=== PATIENT | female | born 1960 | race American Indian/Alaskan Native ===

== ENCOUNTER 2016-12-14 12:13 | Emergency (ER) | payer OTHER ==
[2016-12-14 13:20] LABS: Anion Gap 18 mmol/L; BUN/Creatinine Ratio 22.22; Blood Urea Nitrogen 20 mg/dL (7-17); Calcium 9.4 mg/dL (8.4-10.2); Carbon Dioxide 25 mmol/L (22-30); Chloride 105.2 mmol/L (98-107); Glucose 102 mg/dL (65-100); Potassium 3.8 mmol/L (3.6-5.0); Sodium 144 mmol/L (137-145)
[2016-12-14 13:22] LABS: Basophils % (Auto) 0.3 % (0.0-1.8); Eosinophils % (Auto) 1.9 % (0.0-4.3); Hematocrit 39.6 % (30.3-42.9); Hemoglobin 12.9 gm/dl (10.1-14.3); Mean Corpuscular HGB Conc 33 % (30-34); Mean Corpuscular Hemoglobin 30 pg (28-32); Mean Corpuscular Volume 91 fl (79-97); Platelet Count 222 K/mm3 (140-440); Red Blood Count 4.35 M/mm3 (3.65-5.03); Red Cell Distribution Width 16.1 % (13.2-15.2); White Blood Count 4.9 K/mm3 (4.5-11.0)
--- NOTE | 2016-12-14 13:39 | XRay Report ---
Left knee 2 views: History: Left knee swelling, pain. Findings: No bony or articular abnormality. No fracture dislocation or soft tissue calcification. Impression: Essentially negative left knee.
--- NOTE | 2016-12-14 20:41 | Emergency Department Report ---
HPI - General Chief Complaint: Extremity Problem,Nontraumatic Time Seen by Provider: 12/14/16 20:23 - HPI HPI: Room 25 The patient is a 56-year-old female presenting with a chief complaint of left shoulder pain and left knee pain. The patient states proximal 0.5 weeks ago she had the onset of left shoulder pain radiating down her left upper extremity. The patient states she also developed pain and swelling of the left knee. Patient states the swelling and pain was intermittent and had decreased however after it rained 3 days ago the patient states the pain and swelling increased. Patient denies shortness of breath, nausea/vomiting or diaphoresis associated with her shoulder pain. The patient states she believes the left shoulder is arthritis but because of her previous [place] she is uncertain and cannot be sure it is not her heart. The patient states her last stress test occurred October 2016 and was normal. The patient states her last cardiac catheterization occurred in 2011 when she had cardiac stents placed. The patient states she is currently on Plavix Location: Left Knee, left shoulder Duration: Intermittent 1.5 weeks Quality: Pain Severity: Moderate Modifying factors: [see above] Context: [see above] Mode of transportation: [not driving] ED Past Medical Hx - Past Medical History Hx Hypertension: Yes Hx Heart Attack/AMI: Yes (2012 -[facility]) Hx Arthritis: Yes (PIERRE) Additional medical history: Chronic low back pain. naval hernia, knee Pain, Arthritis - Surgical History Past Surgical History?: Yes Hx Coronary Stent: Yes (x2) Additional Surgical History: Back surgery x2-epidurals. partial hysterectomy - Family History Family history: no significant - Social History Smoking Status: Former Smoker (none 1 month) Substance Use Type: None (denies illicit drug use) - Medications Home Medications: Home Medications Medication Instructions Recorded Confirmed Last Taken Type Clopidogrel Bisulfate [Plavix] 75 mg PO DAILY 12/06/13 11/05/14 11/05/14 History Valsartan [Diovan] 160 mg PO DAILY 12/06/13 11/05/14 Unknown History Metoprolol [Lopressor TAB] 50 mg PO QDAY #30 tablet 06/15/14 11/05/14 11/05/14 Rx Valsartan/Hydrochlorothiazide 1 each PO QDAY #30 tablet 06/15/14 11/05/14 Rx [Valsartan-Hctz 160-25 mg] oxyCODONE /ACETAMINOPHEN [Percocet 1 tab PO Q6HR PRN #15 tablet 06/15/14 Unknown Rx 5/325 mg] Ibuprofen [Motrin 800 MG tab] 800 mg PO Q8HR PRN #30 tablet 05/16/15 Unknown Rx traMADol [Ultram 50 MG tab] 50 mg PO Q6HR PRN #14 tablet 05/16/15 Unknown Rx Naproxen [Naprosyn] 500 mg PO BID #20 tablet 12/14/16 Unknown Rx traMADol [Ultram] 50 mg PO Q6HR PRN #20 tablet 12/14/16 Unknown Rx ED Review of Systems ROS: Stated complaint: LT ARM/KNEE PAIN Other details as noted in HPI Comment: All other systems reviewed and negative Constitutional: denies: chills, fever Eyes: denies: eye pain, eye discharge, vision change ENT: denies: ear pain, throat pain Respiratory: denies: cough, shortness of breath, wheezing Cardiovascular: denies: chest pain, palpitations Endocrine: no symptoms reported Gastrointestinal: denies: abdominal pain, nausea, diarrhea Genitourinary: denies: urgency, dysuria, discharge Musculoskeletal: joint swelling, arthralgia Skin: denies: rash, lesions Neurological: denies: headache, weakness, paresthesias Psychiatric: denies: anxiety, depression Hematological/Lymphatic: denies: easy bleeding, easy bruising Physical Exam - Physical Exam Vital Signs: Vital Signs 12/14/16 12/14/16 12/14/16 12:25 18:20 20:13 Temperature 99.1 F 98.7 F Pulse Rate 88 77 Respiratory 18 20 Rate Blood Pressure 157/93 137/81 Blood Pressure [Right] O2 Sat by Pulse 100 100 96 Oximetry 12/14/16 12/14/16 12/14/16 20:20 20:23 20:25 Temperature 98.5 F 98.5 F Pulse Rate 80 Respiratory 14 Rate Blood Pressure 139/87 135/89 Blood Pressure 138/78 [Right] O2 Sat by Pulse 97 98 98 Oximetry 12/14/16 12/14/16 20:30 20:32 Temperature Pulse Rate Respiratory 14 Rate Blood Pressure 147/85 Blood Pressure [Right] O2 Sat by Pulse 92 98 Oximetry Physical Exam: GENERAL: The patient is well-developed well-nourished female sitting on stretcher not appear to be in acute distress. [] HEENT: Normocephalic. Atraumatic. Extraocular motions are intact. Patient has moist mucous membranes. NECK: Supple. Trachea midline CHEST/LUNGS: Clear to auscultation. There is no respiratory distress noted. HEART/CARDIOVASCULAR: Regular. There is no tachycardia. There is no gallop rub or murmur. ABDOMEN: Abdomen is soft, nontender. Patient has normal bowel sounds. There is no abdominal distention. SKIN: There is no rash. There is mild swelling of the left knee joint. There is no Tenderness. There is no overlying erythema or increased warmth. There is no diaphoresis. NEURO: The patient is awake, alert, and oriented. The patient is cooperative. The patient has normal speech MUSCULOSKELETAL: There is no tenderness or deformity. There is no limitation range of motion. There is no evidence of acute injury. ED Course Vital Signs 12/14/16 12/14/16 12/14/16 12:25 18:20 20:13 Temperature 99.1 F 98.7 F Pulse Rate 88 77 Respiratory 18 20 Rate Blood Pressure 157/93 137/81 Blood Pressure [Right] O2 Sat by Pulse 100 100 96 Oximetry 12/14/16 12/14/16 12/14/16 20:20 20:23 20:25 Temperature 98.5 F 98.5 F Pulse Rate 80 Respiratory 14 Rate Blood Pressure 139/87 135/89 Blood Pressure 138/78 [Right] O2 Sat by Pulse 97 98 98 Oximetry 12/14/16 12/14/16 20:30 20:32 Temperature Pulse Rate Respiratory 14 Rate Blood Pressure 147/85 Blood Pressure [Right] O2 Sat by Pulse 92 98 Oximetry ED Medical Decision Making - Lab Data Result diagrams: 12/14/16 12:42 12/14/16 12:42 Laboratory Tests 12/14/16 12/14/16 12/14/16 12:42 12:42 15:47 WBC 4.9 RBC 4.35 Hgb 12.9 Hct 39.6 MCV 91 MCH 30 MCHC 33 RDW 16.1 H Plt Count 222 Lymph % (Auto) 46.2 H [place] % (Auto) 7.5 H Eos % (Auto) 1.9 Baso % (Auto) 0.3 Lymph # 2.3 [place] # 0.4 Eos # 0.1 Baso # 0.0 Seg Neutrophils % 44.1 Seg Neutrophils # 2.2 Sodium 144 Potassium 3.8 Chloride 105.2 Carbon Dioxide 25 Anion Gap 18 BUN 20 H Creatinine 0.9 Estimated GFR > 60 BUN/Creatinine Ratio 22.22 Glucose 102 H Calcium 9.4 Troponin T < 0.010 < 0.010 12/14/16 18:40 WBC RBC Hgb Hct MCV MCH MCHC RDW Plt Count Lymph % (Auto) [place] % (Auto) Eos % (Auto) Baso % (Auto) Lymph # [place] # Eos # Baso # Seg Neutrophils % Seg Neutrophils # Sodium Potassium Chloride Carbon Dioxide Anion Gap BUN Creatinine Estimated GFR BUN/Creatinine Ratio Glucose Calcium Troponin T < 0.010 - EKG Data -: EKG Interpreted by Me EKG shows normal: sinus rhythm Rate: normal - EKG Data When compared to previous EKG there are: no significant change Interpretation: unchanged when compared t - Radiology Data Radiology results: image reviewed (left knee x-ray) interpreted by me: Left knee x-ray-no acute fractures. No definite effusion seen - Medical Decision Making Discussed at length with patient my concern for her vague left shoulder/chest pain and previous history of coronary artery disease compounded by the fact that she is uncertain if this is similar to her previous heart attack pain. I explained that my recognition would be admission to the hospital for observation. Patient verbalized understanding of increased risk of morbidity and/or mortality. Patient states she still decides to leave the hospital AGAINST MEDICAL ADVICE - Differential Diagnosis ACS, gout, arthritis, hemarthrosis Critical care attestation.: If time is entered above; I have spent that time in minutes in the direct care of this critically ill patient, excluding procedure time. ED Disposition Clinical Impression: Equivalent angina, Left knee pain Disposition: LEFT AGAINST MEDICAL ADVICE Is pt being admited?: No Does the pt Need Aspirin: No Condition: Undetermined Instructions: Angina (ED), Arthralgia (ED) Additional Instructions: Return to the emergency department immediately should you develop worsening symptoms, fever, inability to tolerate food or liquid or any other concerns. Prescriptions: Naproxen [Naprosyn] 500 mg PO BID #20 tablet traMADol [Ultram] 50 mg PO Q6HR PRN #20 tablet PRN Reason: Pain Referrals: MUMTAZ CHOU MD [Primary Care Provider] - 3-5 Days ABISAI DAI MD [Staff Physician] - 3-5 Days (Dr. Dai is an orthopedic surgeon. Please follow up with him for further evaluation) Time of Disposition: 20:49 (patient leaving AMA)
[2016-12-14 21:15] VITALS: BP 142/106
--- NOTE | 2016-12-15 10:10 | XRay Report ---
LEFT KNEE, 3 views: History: Left knee pain and swelling. Compared to the exam earlier the same day at 1250 hrs. The bony architecture is intact without evidence of fracture or dislocation. A moderate to large joint effusion is identified on the lateral image. Soft tissues are within normal limits otherwise. IMPRESSION: Moderate to large joint effusion. No bony abnormality is appreciated. If internal derangement is suspected, MRI left knee without contrast is recommended.
== END 2016-12-14 21:25 | disposition left against medical advice (07) ==
LOC: ED 12:13
DX: I20.8 Other forms of angina pectoris (principal); M25.562 Pain in left knee; I10 Essential (primary) hypertension; M19.90 Unspecified osteoarthritis, unspecified site; G89.29 Other chronic pain; Z87.891 Personal history of nicotine dependence; Z95.5 Presence of coronary angioplasty implant and graft
CPT/HCPCS: 36415; 80048; 84484; 85025; 93005; 93010

== ENCOUNTER 2017-03-24 11:56 | Emergency (ER) | payer OTHER ==
[2017-03-24 12:13] VITALS: BP 157/100
--- NOTE | 2017-03-24 13:52 | Emergency Department Report ---
ED General Adult HPI - General Chief complaint: Extremity Injury, Lower Stated complaint: BP HIGH Time Seen by Provider: 03/24/17 13:12 Source: patient Mode of arrival: Ambulatory Limitations: No Limitations - History of Present Illness Initial comments: Patient comes into the ER today with continued complaints of left knee pain for the past month. Patient denies any injury. Patient does state that she has been seen here in the past for it and had x-rays without any answers as to what caused her symptoms. Patient does state that it seems very unstable when she walks, is painful to walk, is unable to fully extend her lower leg. Patient has not seen orthopedics yet but she does state that she was given naproxen in the past without any relief in symptoms. -: month(s) (1) - Related Data Home Medications Medication Instructions Recorded Confirmed Last Taken Clopidogrel Bisulfate [Plavix] 75 mg PO DAILY 12/06/13 12/14/16 11/05/14 Valsartan [Diovan] 160 mg PO DAILY 12/06/13 12/14/16 Unknown Previous Rx's Medication Instructions Recorded Last Taken Type Metoprolol [Lopressor TAB] 50 mg PO QDAY #30 tablet 06/15/14 11/05/14 Rx Valsartan/Hydrochlorothiazide 1 each PO QDAY #30 tablet 06/15/14 11/05/14 Rx [Valsartan-Hctz 160-25 mg] oxyCODONE /ACETAMINOPHEN [Percocet 1 tab PO Q6HR PRN #15 tablet 06/15/14 Unknown Rx 5/325 mg] Ibuprofen [Motrin 800 MG tab] 800 mg PO Q8HR PRN #30 tablet 05/16/15 Unknown Rx traMADol [Ultram 50 MG tab] 50 mg PO Q6HR PRN #14 tablet 05/16/15 Unknown Rx Naproxen [Naprosyn] 500 mg PO BID #20 tablet 12/14/16 Unknown Rx traMADol [Ultram] 50 mg PO Q6HR PRN #20 tablet 12/14/16 Unknown Rx predniSONE [Deltasone] 60 mg PO QDAY #15 tab 03/24/17 Unknown Rx traMADol [Ultram 50 MG tab] 50 mg PO Q6HR PRN #20 tablet 03/24/17 Unknown Rx Allergies Allergy/AdvReac Type Severity Reaction Status Date / Time No Known Allergies Allergy Verified 06/14/14 19:52 ED Review of Systems ROS: Stated complaint: BP HIGH Other details as noted in HPI Constitutional: denies: chills, fever Eyes: denies: eye pain, eye discharge, vision change ENT: denies: ear pain, throat pain Respiratory: denies: cough, shortness of breath, wheezing Cardiovascular: denies: chest pain, palpitations Endocrine: no symptoms reported Gastrointestinal: denies: abdominal pain, nausea, diarrhea Genitourinary: denies: urgency, dysuria, discharge Musculoskeletal: back pain, joint swelling, arthralgia. denies: myalgia Skin: denies: rash, lesions Neurological: denies: headache, weakness, paresthesias Psychiatric: denies: anxiety, depression Hematological/Lymphatic: denies: easy bleeding, easy bruising ED Past Medical Hx - Past Medical History Previous Medical History?: Yes Hx Hypertension: Yes Hx Heart Attack/AMI: Yes (2012 -[facility]) Hx Arthritis: Yes (PIERRE) Additional medical history: Chronic low back pain. naval hernia, knee Pain, Arthritis - Surgical History Past Surgical History?: Yes Hx Coronary Stent: Yes (x2) Additional Surgical History: Back surgery x2-epidurals. partial hysterectomy - Social History Smoking Status: Former Smoker Substance Use Type: None - Medications Home Medications: Home Medications Medication Instructions Recorded Confirmed Last Taken Type Clopidogrel Bisulfate [Plavix] 75 mg PO DAILY 12/06/13 12/14/16 11/05/14 History Valsartan [Diovan] 160 mg PO DAILY 12/06/13 12/14/16 Unknown History Metoprolol [Lopressor TAB] 50 mg PO QDAY #30 tablet 06/15/14 12/14/16 11/05/14 Rx Valsartan/Hydrochlorothiazide 1 each PO QDAY #30 tablet 06/15/14 12/14/16 Rx [Valsartan-Hctz 160-25 mg] oxyCODONE /ACETAMINOPHEN [Percocet 1 tab PO Q6HR PRN #15 tablet 06/15/14 Unknown Rx 5/325 mg] Ibuprofen [Motrin 800 MG tab] 800 mg PO Q8HR PRN #30 tablet 05/16/15 12/14/16 Unknown Rx traMADol [Ultram 50 MG tab] 50 mg PO Q6HR PRN #14 tablet 05/16/15 12/14/16 Unknown Rx Naproxen [Naprosyn] 500 mg PO BID #20 tablet 12/14/16 Unknown Rx traMADol [Ultram] 50 mg PO Q6HR PRN #20 tablet 12/14/16 Unknown Rx predniSONE [Deltasone] 60 mg PO QDAY #15 tab 03/24/17 Unknown Rx traMADol [Ultram 50 MG tab] 50 mg PO Q6HR PRN #20 tablet 03/24/17 Unknown Rx ED Physical Exam - General Limitations: No Limitations General appearance: alert, in no apparent distress - Head Head exam: Present: atraumatic, normocephalic - Eye Eye exam: Present: normal appearance - ENT ENT exam: Present: mucous membranes moist - Neck Neck exam: Present: normal inspection - Respiratory Respiratory exam: Present: normal lung sounds bilaterally. Absent: respiratory distress, decreased breath sounds - Cardiovascular Cardiovascular Exam: Present: regular rate, normal rhythm. Absent: systolic murmur, diastolic murmur, rubs, gallop - GI/Abdominal GI/Abdominal exam: Present: soft, normal bowel sounds - Extremities Exam Extremities exam: Present: tenderness (tenderness noted to medial and lateral posterior horn meniscus region), joint swelling, other (pain increased with Nicolette's stress testing.). Absent: normal inspection (left knee generalized swelling and compared to right knee.), full ROM (Limited range of motion to full extension secondary to pain.), normal capillary refill, pedal edema, calf tenderness - Back Exam Back exam: Present: normal inspection, tenderness (left lateral lumbar muscle tenderness). Absent: CVA tenderness (R), CVA tenderness (L), vertebral tenderness - Neurological Exam Neurological exam: Present: alert, oriented X3, CN II-XII intact, abnormal gait (limping secondary to pain) - Psychiatric Psychiatric exam: Present: normal affect, normal mood - Skin Skin exam: Present: warm, dry, intact, normal color. Absent: rash ED Course Vital Signs 03/24/17 12:11 Temperature 98.5 F Pulse Rate 93 H Respiratory 16 Rate Blood Pressure 157/100 O2 Sat by Pulse 98 Oximetry ED Medical Decision Making - Medical Decision Making Patient has had x-rays in the past and since there is no new injury, I see no reason to repeat imaging this time. I believe patient would benefit from MRI imaging. I informed patient that we do not perform MRI images on knees here in the ER. Patient was given crutches for symptomatic relief of relieving weight to left knee. I will also give patient a prescription for a hinged knee brace and referrals to orthopedics for further evaluation. Patient is in agreement and patient is stable for discharge. Critical care attestation.: If time is entered above; I have spent that time in minutes in the direct care of this critically ill patient, excluding procedure time. ED Disposition Clinical Impression: Left knee pain, Effusion, left knee, Internal derangement of left knee Disposition: DC-01 TO HOME OR SELFCARE Is pt being admited?: No Does the pt Need Aspirin: No Condition: Good Instructions: Knee Effusion (ED), Hinged Knee Brace (ED), Knee Pain (ED) Prescriptions: predniSONE [Deltasone] 60 mg PO QDAY #15 tab traMADol [Ultram 50 MG tab] 50 mg PO Q6HR PRN #20 tablet PRN Reason: Pain Referrals: PRIMARY MD TAMARA [Primary Care Provider] - 3-5 Days SHANNA DOBBS MD [Staff Physician] - 3-5 Days [facility] [Provider Group] - 3-5 Days Time of Disposition: 13:54
== END 2017-03-24 14:15 | disposition home or self-care (01) ==
LOC: ED 11:56
DX: M23.8X2 Other internal derangements of left knee (principal); M25.462 Effusion, left knee; I10 Essential (primary) hypertension; I25.2 Old myocardial infarction; M19.90 Unspecified osteoarthritis, unspecified site; Z95.818 Presence of other cardiac implants and grafts; Z87.891 Personal history of nicotine dependence
CPT/HCPCS: 99283

== ENCOUNTER 2017-05-11 14:36 | Observation (INO) | payer OTHER ==
[2017-05-11 15:10] LABS: Basophils % (Auto) 0.6 % (0.0-1.8); Eosinophils % (Auto) 2.5 % (0.0-4.3); Hematocrit 37.2 % (30.3-42.9); Hemoglobin 12.3 gm/dl (10.1-14.3); Mean Corpuscular HGB Conc 33 % (30-34); Mean Corpuscular Hemoglobin 30 pg (28-32); Mean Corpuscular Volume 90 fl (79-97); Platelet Count 231 K/mm3 (140-440); Red Blood Count 4.13 M/mm3 (3.65-5.03); Red Cell Distribution Width 15.5 % (13.2-15.2); White Blood Count 3.8 K/mm3 (4.5-11.0)
[2017-05-11 15:28] LABS: Anion Gap 17 mmol/L; BUN/Creatinine Ratio 11.42; Blood Urea Nitrogen 8 mg/dL (7-17); Calcium 8.9 mg/dL (8.4-10.2); Carbon Dioxide 26 mmol/L (22-30); Chloride 99.1 mmol/L (98-107); Glucose 113 mg/dL (65-100); Potassium 3.8 mmol/L (3.6-5.0); Sodium 138 mmol/L (137-145)
[2017-05-11 17:02] LABS: Bilirubin,Urine NEG (Negative); Blood,Urine NEG (Negative); Ketones,Urine NEG (Negative); Leukocyte Esterase,Urine NEG (Negative); Nitrite,Urine NEG (Negative); Protein,Urine <15 mg/dL mg/dL (Negative); RBC,Urine < 1.0 /HPF (0.0-6.0); Urobilinogen,Urine < 2.0 mg/dL (<2.0); WBC,Urine < 1.0 /HPF (0.0-6.0)
--- NOTE | 2017-05-11 19:57 | Emergency Department Report ---
ED Chest Pain HPI - General Chief Complaint: Chest Pain Stated Complaint: CHEST PAIN Time Seen by Provider: 05/11/17 19:44 Source: EMS Mode of arrival: Wheelchair Limitations: No Limitations - History of Present Illness Initial Comments: Patient is a 56-year-old female past medical history of hypertension and coronary artery disease. Who presents with chest pain and leg swelling that's been going on for the last few hours. She states that her chest pain is located in the left side of her chest. As a pressure type of pain it radiates to her shoulder nothing makes the pain better or worse. She also states that she's had some left leg swelling has been going on for last 3 days. She has been concerned that she has been getting more short of breath lately. She states that she gets winded easily doing activities of daily living. Symptoms are worse with exertion and better with rest. Symptoms are moderate. - Related Data Home Medications Medication Instructions Recorded Confirmed Last Taken Clopidogrel Bisulfate [Plavix] 75 mg PO DAILY 12/06/13 12/14/16 11/05/14 Valsartan [Diovan] 160 mg PO DAILY 12/06/13 12/14/16 Unknown Previous Rx's Medication Instructions Recorded Last Taken Type Metoprolol [Lopressor TAB] 50 mg PO QDAY #30 tablet 06/15/14 11/05/14 Rx Valsartan/Hydrochlorothiazide 1 each PO QDAY #30 tablet 06/15/14 11/05/14 Rx [Valsartan-Hctz 160-25 mg] oxyCODONE /ACETAMINOPHEN [Percocet 1 tab PO Q6HR PRN #15 tablet 06/15/14 Unknown Rx 5/325 mg] Ibuprofen [Motrin 800 MG tab] 800 mg PO Q8HR PRN #30 tablet 05/16/15 Unknown Rx traMADol [Ultram 50 MG tab] 50 mg PO Q6HR PRN #14 tablet 05/16/15 Unknown Rx Naproxen [Naprosyn] 500 mg PO BID #20 tablet 12/14/16 Unknown Rx traMADol [Ultram] 50 mg PO Q6HR PRN #20 tablet 12/14/16 Unknown Rx predniSONE [Deltasone] 60 mg PO QDAY #15 tab 03/24/17 Unknown Rx traMADol [Ultram 50 MG tab] 50 mg PO Q6HR PRN #20 tablet 03/24/17 Unknown Rx Allergies Allergy/AdvReac Type Severity Reaction Status Date / Time No Known Allergies Allergy Verified 06/14/14 19:52 Heart Score - HEART Score History: Moderately suspicious EKG: Normal Age: 45-65 Risk factors: > 3 risk factors or hx of atherosclerotic disease Troponin: < normal limit HEART Score: 4 ED Review of Systems ROS: Stated complaint: CHEST PAIN Other details as noted in HPI Constitutional: denies: chills, fever Eyes: denies: eye pain, eye discharge, vision change ENT: denies: ear pain, throat pain Respiratory: SOB with exertion Cardiovascular: chest pain, edema Endocrine: no symptoms reported Gastrointestinal: denies: abdominal pain, nausea, diarrhea Genitourinary: denies: urgency, dysuria, discharge Musculoskeletal: back pain. denies: joint swelling, arthralgia Skin: denies: rash, lesions Neurological: denies: headache, weakness, paresthesias Psychiatric: denies: anxiety, depression Hematological/Lymphatic: denies: easy bleeding, easy bruising ED Past Medical Hx - Past Medical History Hx Hypertension: Yes Hx Heart Attack/AMI: Yes (2012 -[facility]) Hx Arthritis: Yes (PIERRE) Additional medical history: Chronic low back pain. naval hernia, knee Pain, Arthritis - Surgical History Hx Coronary Stent: Yes (x2) Additional Surgical History: Back surgery x2-epidurals. partial hysterectomy - Social History Smoking Status: Former Smoker Substance Use Type: None - Medications Home Medications: Home Medications Medication Instructions Recorded Confirmed Last Taken Type Clopidogrel Bisulfate [Plavix] 75 mg PO DAILY 12/06/13 12/14/16 11/05/14 History Valsartan [Diovan] 160 mg PO DAILY 12/06/13 12/14/16 Unknown History Metoprolol [Lopressor TAB] 50 mg PO QDAY #30 tablet 06/15/14 12/14/16 11/05/14 Rx Valsartan/Hydrochlorothiazide 1 each PO QDAY #30 tablet 06/15/14 12/14/16 Rx [Valsartan-Hctz 160-25 mg] oxyCODONE /ACETAMINOPHEN [Percocet 1 tab PO Q6HR PRN #15 tablet 06/15/14 Unknown Rx 5/325 mg] Ibuprofen [Motrin 800 MG tab] 800 mg PO Q8HR PRN #30 tablet 05/16/15 12/14/16 Unknown Rx traMADol [Ultram 50 MG tab] 50 mg PO Q6HR PRN #14 tablet 05/16/15 12/14/16 Unknown Rx Naproxen [Naprosyn] 500 mg PO BID #20 tablet 12/14/16 Unknown Rx traMADol [Ultram] 50 mg PO Q6HR PRN #20 tablet 12/14/16 Unknown Rx predniSONE [Deltasone] 60 mg PO QDAY #15 tab 03/24/17 Unknown Rx traMADol [Ultram 50 MG tab] 50 mg PO Q6HR PRN #20 tablet 03/24/17 Unknown Rx ED Physical Exam - General Limitations: No Limitations General appearance: alert - Head Head exam: Present: atraumatic, normocephalic - Eye Eye exam: Present: normal appearance - ENT ENT exam: Present: mucous membranes moist - Neck Neck exam: Present: normal inspection - Respiratory Respiratory exam: Present: normal lung sounds bilaterally - Cardiovascular Cardiovascular Exam: Present: regular rate, normal rhythm. Absent: systolic murmur, diastolic murmur, rubs, gallop - GI/Abdominal GI/Abdominal exam: Present: soft, normal bowel sounds - Extremities Exam Extremities exam: Present: other (left leg swelling no pedal edema.) - Back Exam Back exam: Present: paraspinal tenderness - Neurological Exam Neurological exam: Present: alert, oriented X3, CN II-XII intact - Psychiatric Psychiatric exam: Present: normal affect, normal mood - Skin Skin exam: Present: warm, dry ED Course Vital Signs 05/11/17 05/11/17 05/11/17 14:42 20:22 20:31 Temperature 98.7 F Pulse Rate 85 78 Respiratory 20 19 Rate Blood Pressure 157/101 121/69 Blood Pressure [Left] O2 Sat by Pulse 97 99 95 Oximetry 05/11/17 05/11/17 05/11/17 20:41 20:49 20:51 Temperature 98.6 F Pulse Rate 76 75 73 Respiratory 15 18 11 L Rate Blood Pressure 121/69 122/86 122/65 Blood Pressure 122/86 [Left] O2 Sat by Pulse 97 96 97 Oximetry - Reevaluation(s) Reevaluation #1: 05/11/17 21:33 Reevaluated patient patient still states that she is short of breath. Discussed that I will that the patient to the hospital. Patient agrees with plan. Reevaluation #2: 05/11/17 23:31 She states that she still more pain I will give the patient IV fentanyl ALLAN score - Allan Score Age > 65: (0) No Aspirin use within the Past 7 Days: (1) Yes 3 or more CAD Risk Factors: (1) Yes 2 or more Angina events in past 24 hrs: (1) Yes Known CAD with more than 50% Stenosis: (0) No Elevated Cardiac Markers: (0) No ST Deviation Greater than 0.5mm: (0) No ALLAN Score: 3 ED Medical Decision Making - Lab Data Result diagrams: 05/11/17 15:00 05/11/17 15:00 Lab Results 05/11/17 05/11/17 05/11/17 Range/Units 15:00 15:00 19:03 WBC 3.8 L (4.5-11.0) K/mm3 RBC 4.13 (3.65-5.03) M/mm3 Hgb 12.3 (10.1-14.3) gm/dl Hct 37.2 (30.3-42.9) % MCV 90 (79-97) fl MCH 30 (28-32) pg MCHC 33 (30-34) % RDW 15.5 H (13.2-15.2) % Plt Count 231 (140-440) K/mm3 Lymph % (Auto) 35.6 H (13.4-35.0) % [place] % (Auto) 8.3 H (0.0-7.3) % Eos % (Auto) 2.5 (0.0-4.3) % Baso % (Auto) 0.6 (0.0-1.8) % Lymph # 1.4 (1.2-5.4) K/mm3 [place] # 0.3 (0.0-0.8) K/mm3 Eos # 0.1 (0.0-0.4) K/mm3 Baso # 0.0 (0.0-0.1) K/mm3 Seg Neutrophils % 53.0 (40.0-70.0) % Seg Neutrophils # 2.0 (1.8-7.7) K/mm3 Sodium 138 (137-145) mmol/L Potassium 3.8 (3.6-5.0) mmol/L Chloride 99.1 (98-107) mmol/L Carbon Dioxide 26 (22-30) mmol/L Anion Gap 17 mmol/L BUN 8 (7-17) mg/dL Creatinine 0.7 (0.7-1.2) mg/dL Estimated GFR > 60 ml/min BUN/Creatinine Ratio 11.42 % Glucose 113 H (65-100) mg/dL Calcium 8.9 (8.4-10.2) mg/dL Troponin T < 0.010 < 0.010 (0.00-0.029) ng/mL NT-Pro-B Natriuret Pep (0-900) pg/mL Urine Color (Yellow) Urine Turbidity (Clear) Urine pH (5.0-7.0) Ur Specific [place] (1.003-1.030) Urine Protein (Negative) mg/dL Urine Glucose (UA) (Negative) mg/dL Urine Ketones (Negative) mg/dL Urine Blood (Negative) Urine Nitrite (Negative) Urine Bilirubin (Negative) Urine Urobilinogen (<2.0) mg/dL Ur Leukocyte Esterase (Negative) Urine WBC (Auto) (0.0-6.0) /HPF Urine RBC (Auto) (0.0-6.0) /HPF U Epithel Cells (Auto) (0-13.0) /HPF 05/11/17 05/11/17 Range/Units 19:03 Unknown WBC (4.5-11.0) K/mm3 RBC (3.65-5.03) M/mm3 Hgb (10.1-14.3) gm/dl Hct (30.3-42.9) % MCV (79-97) fl MCH (28-32) pg MCHC (30-34) % RDW (13.2-15.2) % Plt Count (140-440) K/mm3 Lymph % (Auto) (13.4-35.0) % [place] % (Auto) (0.0-7.3) % Eos % (Auto) (0.0-4.3) % Baso % (Auto) (0.0-1.8) % Lymph # (1.2-5.4) K/mm3 [place] # (0.0-0.8) K/mm3 Eos # (0.0-0.4) K/mm3 Baso # (0.0-0.1) K/mm3 Seg Neutrophils % (40.0-70.0) % Seg Neutrophils # (1.8-7.7) K/mm3 Sodium (137-145) mmol/L Potassium (3.6-5.0) mmol/L Chloride (98-107) mmol/L Carbon Dioxide (22-30) mmol/L Anion Gap mmol/L BUN (7-17) mg/dL Creatinine (0.7-1.2) mg/dL Estimated GFR ml/min BUN/Creatinine Ratio % Glucose (65-100) mg/dL Calcium (8.4-10.2) mg/dL Troponin T (0.00-0.029) ng/mL NT-Pro-B Natriuret Pep 38.34 (0-900) pg/mL Urine Color Yellow (Yellow) Urine Turbidity Clear (Clear) Urine pH 6.0 (5.0-7.0) Ur Specific [place] 1.016 (1.003-1.030) Urine Protein <15 mg/dl (Negative) mg/dL Urine Glucose (UA) Neg (Negative) mg/dL Urine Ketones Neg (Negative) mg/dL Urine Blood Neg (Negative) Urine Nitrite Neg (Negative) Urine Bilirubin Neg (Negative) Urine Urobilinogen < 2.0 (<2.0) mg/dL Ur Leukocyte Esterase Neg (Negative) Urine WBC (Auto) < 1.0 (0.0-6.0) /HPF Urine RBC (Auto) < 1.0 (0.0-6.0) /HPF U Epithel Cells (Auto) < 1.0 (0-13.0) /HPF - EKG Data -: EKG Interpreted by Ks - EKG Data 05/11/17 21:36 EKG shows normal sinus rhythm with no ST segment elevations or T-wave inversions. - Radiology Data Radiology results: report reviewed, image reviewed CT angios chest: No evidence of pulmonary embolism - Medical Decision Making Chief medical diagnosis: Unstable angina Differential medical diagnosis: Congestive heart failure, pulmonary embolism, pneumothorax I will get CBC, CMP, troponin, EKG, CT PE scan, IV pain medication, IV Lasix Due to patient having history of recent CT her history is concerning for acute coronary syndrome. I will admit patient for cardiac rule out. CT anginal chest shows no evidence of pulmonary embolism. Patient may have a moderate amount of restrictive lung disease. Causing her shortness of breath. Discussed plan with the patient and she will be admitted to the hospital. Critical care attestation.: If time is entered above; I have spent that time in minutes in the direct care of this critically ill patient, excluding procedure time. ED Disposition Clinical Impression: Shortness of breath, Chest pain at rest, Left leg swelling Disposition: OP ADMIT IP TO THIS HOSP Is pt being admited?: Yes Does the pt Need Aspirin: No Condition: Stable Instructions: Chest Pain (ED) Referrals: PRIMARY CARE, [Primary Care Provider] - 3-5 Days
[2017-05-11] MEDS ORDERED: LASIX IV ONE (20:12)
[2017-05-11] MEDS ORDERED: NACL ONE (20:26)
[2017-05-11] MEDS ORDERED: SUBLIMAZE IV ONE ×2 (21:22→23:29)
[2017-05-11 22:04] LABS: INR 1.01 (0.87-1.13)
[2017-05-11 22:05] LABS: Partial Thromboplastin Time 30.9 Sec. (24.2-36.6)
[2017-05-11] MEDS ORDERED: NITROSTAT SL PRN (22:46)
[2017-05-11] MEDS ORDERED: ZOFRAN IV PRN (22:50)
--- NOTE | 2017-05-11 22:52 | Cat Scan Report ---
FINAL REPORT PROCEDURE: CT ANGIO CHEST TECHNIQUE: Computerized tomographic angiography of the chest was performed after the IV injection of iodinated nonionic contrast including image processing. The image data was postprocessed using 2-dimensional multiplanar reformatted (MPR) and 3-dimensional (MIP and/or volume rendered) techniques. HISTORY: Evaluate pulmonary embolus COMPARISON: No prior studies are available for comparison. FINDINGS: Pulmonary outflow tract, right and left main pulmonary arteries and their proximal branches: Clear, no filling defects seen to suggest pulmonary embolus. Pericardium: No evidence of pericardial effusion. Thoracic aorta: No evidence of aneurysmal dilatation or dissection. Coronary arteries: Are partially calcified indicating atherosclerotic disease. Mediastinum and hilar regions: Nonspecific subcentimeter lymph nodes are visualized. No pathologically enlarged lymph nodes or masses are identified. Lung Brock: Small amount of dependent atelectasis is visualized bilaterally. No infiltrates, masses or effusions are seen. There is no pneumothorax. Upper abdomen: There is a 1.6 centimeter low-density nodule laterally in the right lobe of the liver which appears represent a hepatic cyst. No acute abnormalities are seen in the upper abdomen. Other: None IMPRESSION: No evidence of pulmonary embolus. Small amount of dependent atelectasis is visualized. Atherosclerotic changes are seen in the coronary arteries. Small low-density nodule is seen within the right lobe of the liver suggesting a small hepatic cyst. No other abnormalities are visualized.
[2017-05-11] MEDS: NITRO-BID 2% TP SCH (23:50)
[2017-05-12] MEDS: MORPHINE IV PRN ×2 (04:02→16:27)
[2017-05-12] MEDS ORDERED: TYLENOL PO PRN (04:54)
[2017-05-12] MEDS: NITRO-BID 2% TP SCH ×2 (06:01→20:18)
[2017-05-12] MEDS: HEPARIN SUB-Q SCH ×2 (06:02→20:19)
--- NOTE | 2017-05-12 07:28 | Admit Criteria Form ---
Admission Criteria Documentation: TELEMETRY CARE Telemetry Admission Guidelines (Place 'X' for any and all applicable criteria): Admission to telemetry [A] may be indicated for ANY ONE of the following(1)(2)(3 )(4)(5): [X]I. Cardiac disease, including ANY ONE of the following (9)(10)(11)(12)(13 ): [ ]a) Postacute ND [ ]b) Low-risk patients with ST-segment elevation ND who have undergone successful percutaneous coronary intervention [X]c) Unstable angina [ ]d) Suspected ND (until it is ruled out) [ ]e) Post cardiac surgery (first 48 to 72 hours unless complications occur) [ ]f) Acute arrhythmias (including significant tachycardia or bradycardia) [B] [ ]g) Firing of an implantable cardioverter defibrillator [C] [ ]h) Suspected pacemaker or implantable cardioverter defibrillator malfunction (10) [ ]i) New administration or adjustment of an antiarrhythmic drug [D ] [ ]j) Child admitted for acute congestive heart failure [ ]j) Long QT syndrome [ ]k) Advanced heart block (eg, second-degree Mobitz type II, third- degree heart block) [ ]l) Acute myocarditis or pericarditis [ ]m) Short-term (ambulatory or inpatient) monitoring after a cardiac procedure as indicated by ANY ONE of the following [E]: [ ]i) Electrophysiologic studies [ ]ii) Percutaneous coronary intervention with stent placement [ ]iii) Pacemaker placement with cardiac conduction defect [ ]iv) Implantable cardiac defibrillator placement [ ]II. Drug overdose or poisoning with substance that causes arrhythmias or QT prolongation (eg, phenothiazines, sympathomimetic agents, cyclic antidepressants, digitalis, antiarrhythmic drugs)(15) [ ]III. Short-term (ambulatory or inpatient) monitoring after therapeutic or diagnostic procedure requiring conscious sedation or anesthesia (eg, endoscopy, elective cardioversion) [ ]IV. Acute cerebrovascular even[F](18) [ ]V. Massive blood transfusion (eg, at least 10 units of packed red blood cells in 24 hours) [ ]. Variceal bleeding after endoscopy, sclerotherapy, or IV vasopressin [ ]VII. Uncorrected electrolyte abnormalities associated with an increased risk of dangerous arrhythmia [G]; examples include [ ]a) Hyperkalemia with attributable ECG changes [ ]b) Potassium greater than 6.5 mmol/L (mEq/L) in a patient without history of chronic renal disease [ ]c) Prolonged QT attributed to hypokalemia, hypomagnesemia, or hypocalcemia [ ]VIII.Unexplained syncope or other neurologic event suspected of being due to arrhythmia due to a finding that increases risk; examples include(19)(20)(21): [ ]a) High-risk ECG findings (eg, bifascicular block, bradycardia, abnormal QT interval, ventricular pre- excitation) [ ]b) History of previous syncope due to arrhythmia [ ]c) Abnormal ventricular function (eg, reduced ejection fraction ) [ ]d) Exertional or supine syncope [ ]e) Concerning syncope characteristics (eg, sudden loss of consciousness without prodrome) [ ]f) Family history of sudden [ ]g) Use of arrhythmogenic medication [ ]h) Suspected cardiac ischemia [ ]i) Known channelopathy (eg, long QT syndrome, Brugada syndrome, or catecholaminergic paroxysmal ventricular tachycardia) [ ]j) Known structural heart disease (eg, hypertrophic cardiomyopathy , severe valvular disease) [ ]k) Palpitations preceding syncope The original [facility] content created by [facility] [facility] has been revised. The portions of the content which have been revised are identified through the use of italic text or in bold, and [employer] [email or web address], [email or web address] has neither reviewed nor approved the modified material. All other unmodified content is copyright [facility]. Please see references footnoted in the original [facility] edition 2016 Admission Criteria Met: Yes
--- NOTE | 2017-05-12 07:42 | Progress Note ---
Assessment and Plan Assessment and plan: Chest Pain Normal sinus Cardiac enzymes negative 3 Stress test taken awaiting on findings Continue on Aspirin and Plavix Nitroglycerin when necessary Congestive heart failure Patient has recent echocardiogram Given Lasix 40mg IV once and continue on Beta bloker and BERNIE inhibitor Strict I's and daily weights, Low-sodium diet/cardiac diet, fluid restriction 1200 ml in 24 hours Closely monitor electrolytes Hypertension Continue on home antihypertensive medicines Left leg swelling Doppler VL venous ordred to rule out DVT CT angios chest no evidence of pulmonary embolism DVT prophylaxis Lovenox History Interval history: Patient complaining of left leg swelling, shortness of breath and dyspnea on exertion. She denies chest pain at present time. Hospitalist Physical - Constitutional Vitals: Temp Pulse Resp BP Pulse Ox 98.6 F 83 20 120/73 98 05/11/17 23:57 05/12/17 06:01 05/12/17 03:31 05/12/17 06:01 05/12/17 03:31 General appearance: Present: no acute distress - EENT Eyes: Present: PERRL ENT: hearing intact - Neck Neck: Present: supple - Respiratory Respiratory effort: normal Respiratory: bilateral: CTA - Cardiovascular Heart rate: 86 Rhythm: regular Heart Sounds: Present: S1 & S2 - Extremities Extremities: no ischemia Extremity abnormal: edema (left lower extremity) Peripheral Pulses: within normal limits - Abdominal General gastrointestinal: soft, non-tender - Integumentary Integumentary: Present: clear, warm, dry - Psychiatric Psychiatric: appropriate mood/affect - Neurologic Neurologic: CNII-XII intact - Allied Health Allied health notes reviewed: nursing Results - Labs CBC & Chem 7: 05/11/17 15:00 05/11/17 15:00 Labs: Laboratory Last Values WBC 3.8 K/mm3 (4.5-11.0) L 05/11/17 15:00 RBC 4.13 M/mm3 (3.65-5.03) 05/11/17 15:00 Hgb 12.3 gm/dl (10.1-14.3) 05/11/17 15:00 Hct 37.2 % (30.3-42.9) 05/11/17 15:00 MCV 90 fl (79-97) 05/11/17 15:00 MCH 30 pg (28-32) 05/11/17 15:00 MCHC 33 % (30-34) 05/11/17 15:00 RDW 15.5 % (13.2-15.2) H 05/11/17 15:00 Plt Count 231 K/mm3 (140-440) 05/11/17 15:00 Lymph % (Auto) 35.6 % (13.4-35.0) H 05/11/17 15:00 [place] % (Auto) 8.3 % (0.0-7.3) H 05/11/17 15:00 Eos % (Auto) 2.5 % (0.0-4.3) 05/11/17 15:00 Baso % (Auto) 0.6 % (0.0-1.8) 05/11/17 15:00 Lymph # 1.4 K/mm3 (1.2-5.4) 05/11/17 15:00 [place] # 0.3 K/mm3 (0.0-0.8) 05/11/17 15:00 Eos # 0.1 K/mm3 (0.0-0.4) 05/11/17 15:00 Baso # 0.0 K/mm3 (0.0-0.1) 05/11/17 15:00 Seg Neutrophils % 53.0 % (40.0-70.0) 05/11/17 15:00 Seg Neutrophils # 2.0 K/mm3 (1.8-7.7) 05/11/17 15:00 PT 13.2 Sec. (12.2-14.9) 05/11/17 21:40 INR 1.01 (0.87-1.13) 05/11/17 21:40 APTT 30.9 Sec. (24.2-36.6) 05/11/17 21:40 Sodium 138 mmol/L (137-145) 05/11/17 15:00 Potassium 3.8 mmol/L (3.6-5.0) 05/11/17 15:00 Chloride 99.1 mmol/L (98-107) 05/11/17 15:00 Carbon Dioxide 26 mmol/L (22-30) 05/11/17 15:00 Anion Gap 17 mmol/L 05/11/17 15:00 BUN 8 mg/dL (7-17) 05/11/17 15:00 Creatinine 0.7 mg/dL (0.7-1.2) 05/11/17 15:00 Estimated GFR > 60 ml/min 05/11/17 15:00 BUN/Creatinine Ratio 11.42 % 05/11/17 15:00 Glucose 113 mg/dL (65-100) H 05/11/17 15:00 Calcium 8.9 mg/dL (8.4-10.2) 05/11/17 15:00 Troponin T < 0.010 ng/mL (0.00-0.029) 05/11/17 19:03 NT-Pro-B Natriuret Pep 38.34 pg/mL (0-900) 05/11/17 19:03 Urine Color Yellow (Yellow) 05/11/17 Unknown Urine Turbidity Clear (Clear) 05/11/17 Unknown Urine pH 6.0 (5.0-7.0) 05/11/17 Unknown Ur Specific [place] 1.016 (1.003-1.030) 05/11/17 Unknown Urine Protein <15 mg/dl mg/dL (Negative) 05/11/17 Unknown Urine Glucose (UA) Neg mg/dL (Negative) 05/11/17 Unknown Urine Ketones Neg mg/dL (Negative) 05/11/17 Unknown Urine Blood Neg (Negative) 05/11/17 Unknown Urine Nitrite Neg (Negative) 05/11/17 Unknown Urine Bilirubin Neg (Negative) 05/11/17 Unknown Urine Urobilinogen < 2.0 mg/dL (<2.0) 05/11/17 Unknown Ur Leukocyte Esterase Neg (Negative) 05/11/17 Unknown Urine WBC (Auto) < 1.0 /HPF (0.0-6.0) 05/11/17 Unknown Urine RBC (Auto) < 1.0 /HPF (0.0-6.0) 05/11/17 Unknown U Epithel Cells (Auto) < 1.0 /HPF (0-13.0) 05/11/17 Unknown
[2017-05-12] MEDS ORDERED: D50W (25GM) Syringe IV PRN (07:48)
--- NOTE | 2017-05-12 09:40 | History and Physical Report ---
CHIEF COMPLAINT: Chest pain. HISTORY OF PRESENT ILLNESS: The patient is a 56-year-old female presenting with pressure-like chest pain located in the precordial and retrosternal area radiating to the left shoulder area. There is no history of associated nausea or vomiting. There is history of associated shortness of breath. Also, the patient complains of swelling in the leg going on for about 3 days and says that she gets short of breath whenever she does some activity and gets better when she is resting. The patient denies history of dizziness. Denies history of diaphoresis. PAST MEDICAL HISTORY: Pertinent for hypertension, coronary artery disease, status post myocardial infarction, arthritis, chronic low back pain, knee pain, and navel hernia. PAST SURGICAL HISTORY: Pertinent for stent placement, back surgery, and partial hysterectomy. FAMILY HISTORY: Noncontributory. SOCIAL HISTORY: The patient does not smoke, does not drink alcohol, and does not use illicit drugs. MEDICATIONS: The patient is on Plavix 75 mg by mouth daily, Diovan 160 mg by mouth daily, Lopressor 50 mg by mouth daily, valsartan/HCTZ 160/25 mg 1 by mouth daily, Percocet 5/325 mg 1 by mouth every 6 hours as needed for pain, ibuprofen 800 mg by mouth every 8 hours as needed for pain and tramadol 50 mg by mouth every 6 hours as needed for pain, naproxen 500 mg by mouth twice daily. The patient is also on prednisone 60 mg by mouth daily. ALLERGIES: There are no known drug allergies. REVIEW OF SYSTEMS: CONSTITUTIONAL: There is no fever, no chills, no diaphoresis. HEENT: There is no headache or sore throat. CARDIOVASCULAR SYSTEM: Chest pain present. No orthopnea. RESPIRATORY SYSTEM: Shortness of breath present, but no cough. GASTROINTESTINAL SYSTEM: There is no nausea, no vomiting, no abdominal pain, diarrhea or constipation. NEUROLOGICAL SYSTEM: There is no numbness, no dizziness, no altered mental status. MUSCULOSKELETAL SYSTEM: Swelling in the legs noted and pain in the legs noted. DERMATOLOGICAL SYSTEM: There is no skin rash or itching. GENITOURINARY SYSTEM: There is no dysuria, hematuria or flank pain. Rest of system review is normal. PHYSICAL EXAMINATION: GENERAL: At the time of exam, the patient was found to be alert, oriented x 3, and not in acute distress. VITAL SIGNS: Shows with temperature of 98.6, pulse of 79, respiration of 14, blood pressure 118/82, O2 sat of 96% on room air. HEENT: Exam showed pupils to be equal, round, reactive to light and accommodation. Extraocular muscles are intact. NECK: Supple with no JVD or carotid bruit. CARDIOVASCULAR SYSTEM: Show first and second heart sounds with no gallops or murmur. The patient has 1+ pitting edema. RESPIRATORY SYSTEM: Show good air entry on both sides of the lung with no abnormal breath sounds. GASTROINTESTINAL SYSTEM: Show abdomen to be full, soft, and nontender with no organomegaly or rigidity. NEUROLOGIC: Exam shows no focal deficit. MUSCULOSKELETAL SYSTEM: Show swelling in the ankles. DERMATOLOGICAL SYSTEM: Show no skin rash. GENITOURINARY SYSTEM: Showing no costovertebral angle tenderness. PERTINENT LABORATORY DATA AND IMAGING STUDIES: The patient had a CT angiogram of the chest done that shows no evidence of pulmonary embolism; however, there is finding of small amount of dependent atelectasis with small low density nodules seen within the right lobe of the liver suggesting a small hepatitic cyst. LAB RESULTS: The patient had CBC done that shows slightly decreased WBC of 3.8 with normal hemoglobin and normal hematocrit as well as normal platelets. CBC differential shows elevated lymphocytes of 35.6% with elevated monocytes of 8.3%. Coagulation studies were unremarkable. Chemistry came back unremarkable. Troponin levels came back unremarkable. Urinalysis came back unremarkable. DIAGNOSIS: Chest pain. PLAN: The patient will be put on chest pain pathway, on telemetry in the medical das and we will have cardiac enzymes, troponin checked q.6 hours x 2 more levels. The patient will be on telemetry and will be on aspirin 325 mg by mouth daily, will also be on heparin 5000 units subcutaneous q.12 for deep venous thrombosis prophylaxis. The patient will be on morphine 2 mg IV q.4 hours as needed for pain and nitro paste half inch to the chest wall q.i.d. The patient will also be on IV Zofran 4 mg q.6 hours for nausea and vomiting and will be on oxygen by nasal cannula at 2 liter per minute. The patient will be n.p.o. for Lexiscan stress test in the morning and will be on Tylenol 650 mg q.4 hours for fever and headache. The patient's home medications will be reconciled and applied. JOB# [id number] OCN/NTS MTDD
[2017-05-12] MEDS ORDERED: ZANAFLEX PO SCH (10:00)
[2017-05-12] MEDS ORDERED: HYDROCHLOROTHIAZIDE PO SCH (10:00)
[2017-05-12] MEDS ORDERED: VALSARTAN PO SCH (10:00)
[2017-05-12] MEDS ORDERED: LOPRESSOR PO SCH (10:00)
[2017-05-12] MEDS ORDERED: WELLBUTRIN SR PO SCH (10:00)
[2017-05-12] MEDS ORDERED: DIOVAN PO SCH (10:00)
[2017-05-12] MEDS ORDERED: GLUCOPHAGE PO SCH (10:00)
[2017-05-12] MEDS ORDERED: BABY ASPIRIN PO SCH (10:00)
[2017-05-12] MEDS ORDERED: ASPIRIN PO SCH (10:00)
[2017-05-12] MEDS ORDERED: HCTZ PO SCH (10:00)
[2017-05-12] MEDS ORDERED: PLAVIX PO SCH ×2 (10:00)
[2017-05-12] MEDS ORDERED: LEXISCAN IV ONE (10:40)
--- NOTE | 2017-05-12 13:54 | Discharge Summary ---
Providers - Providers Date of Admission: 05/11/17 22:43 Date of discharge: 05/12/17 Attending physician: VALENTINA MIGUEL MD Primary care physician: [employer] Hospitalization Reason for admission: Chest Pain Condition: Good Hospital course: Patient is a 56-year-old female past medical history of hypertension and coronary artery disease who presents with chest pain and left leg swelling that' s been going on for the last few hours. She states that her chest pain is located in the left side of her chest. As a pressure type of pain it radiates to her shoulder nothing makes the pain better or worse. Patient was diagnosed with chest pain, hypertension, Hyperlipidemia and left leg swelling. Patient presented with atypical chest pain, ACS was ruled out, Stress test normal MPI, Echocardiogram WNL negative cardiac enzymes, ECGs shows normal sinus rhythm, CXR was wnl and CTA negative for pulmonary embolism and Doppler VL venous duplex no evidence of DVT/SVT. Patient chest pain probably from musculoskeletal or gastritis. She was treated with , antilipid and antihypertensive medications. Patient is clinically improved and stable for discharge. Patient advised to follow-up with her Family Manager and primary care provider. Discharge Diagnosed Chest Pain due to costochondritis Hypertension Hyperlipidemia Left leg swelling Disposition: DC-01 TO HOME OR SELFCARE Time spent for discharge: 33 minutes Core Measure Documentation - Palliative Care Palliative Care/ Comfort Measures: Not Applicable - Core Measures Any of the following diagnoses?: none Exam - Constitutional Vitals: Temp Pulse Resp BP Pulse Ox 98.6 F 86 13 138/71 94 05/11/17 23:57 05/12/17 10:53 05/12/17 08:11 05/12/17 10:53 05/12/17 13:05 General appearance: Present: no acute distress - EENT Eyes: Present: PERRL ENT: hearing intact - Neck Neck: Present: supple - Respiratory Respiratory effort: normal Respiratory: bilateral: CTA - Cardiovascular Rhythm: regular Heart Sounds: Present: S1 & S2 - Extremities Extremities: no ischemia Peripheral Pulses: within normal limits - Abdominal General gastrointestinal: Present: soft, non-tender - Rectal Rectal Exam: deferred - Integumentary Integumentary: Present: clear, warm, dry - Musculoskeletal Musculoskeletal: strength equal bilaterally - Psychiatric Psychiatric: appropriate mood/affect - Neurologic Neurologic: CNII-XII intact - Allied Health Allied health notes reviewed: nursing Plan Activity: no restrictions Weight Bearing Status: Weight Bear as Tolerated Diet: low fat, low cholesterol, low salt Special Instructions: restrict fluid intake to, record daily weights, record daily BP diary Follow up with: PRIMARY CARE, [Primary Care Provider] - 3-5 Days Forms: Work/School Release Form(ED)
[2017-05-12 18:22] VITALS: BP 142/66
[2017-05-12] MEDS: NOVOLOG SUB-Q SCH ×2 (20:18→20:19)
--- NOTE | 2017-05-12 20:41 | Treadmill Report ---
NUCLEAR STRESS TEST The patient is brought to the Cardiology lab and a nuclear stress test is performed. The patient tolerated the Lexiscan administration well. Post-stress images reveal fairly homogeneous distribution of the isotope. There appears to be mild motion artifact and no significant reversible defects are noted to indicate ischemia. Accompanying gated study shows excellent systolic function with no wall motion abnormalities. Calculated ejection fraction is noted to be 77%. IMPRESSION: Dual isotope study is noted to be essentially negative for significant reversibility to indicate ischemia. Accompanying gated study showed excellent systolic function with no significant wall motion abnormalities. Suggest clinical correlation. JOB# [id number] KBM/NTS
[2017-05-12] MEDS ORDERED: NOVOLOG SUB-Q SCH (22:00)
== END 2017-05-12 22:00 | disposition home or self-care (01) ==
LOC: ED 14:36 → 4A 22:43
PROVIDERS: ADMIT Internal Medicine; ATTEND Internal Medicine
DX: R07.2 Precordial pain (principal); M94.0 Chondrocostal junction syndrome [Tietze]; I25.10 Atherosclerotic heart disease of native coronary artery without angina pectoris; I11.0 Hypertensive heart disease with heart failure; I50.9 Heart failure, unspecified; E78.5 Hyperlipidemia, unspecified; G89.29 Other chronic pain; M54.5 Low back pain; M79.89 Other specified soft tissue disorders; I25.2 Old myocardial infarction; Z90.710 Acquired absence of both cervix and uterus
CPT/HCPCS: 36415; 71275; 78452; 80048; 81001; 83880; 84484; 85025; 85610; 85730; 93005; 93010; 93017; 93306; 93970; 96372; 96374; 96375; 96376; 99285; A9502; G0378; J1644; J1940; J2270; J2405; J2785; J3010; Q9967

== ENCOUNTER 2017-05-30 07:16 | Outpatient (CLI) | payer OTHER ==
--- NOTE | 2017-05-30 09:46 | Magnetic Resonance Report ---
MR LOWER EXTREMITY JOINT LEFT WITHOUT CONTRAST HISTORY: Left knee pain. TECHNIQUE: Multiple T1 and T2-weighted images with and without fat saturation were obtained through the left knee. COMPARISON: Left knee films dated 12/14/16. FINDINGS: There is diffuse nonspecific subcutaneous edema. A very large joint effusion is present which extends to the suprapatellar bursa. A slightly complex popliteal cyst measures 4.8 x 2.3 x 2.3 cm. Rupture of this popliteal cyst may be present due to the large amount of subcutaneous edema. The bone marrow signal is within normal limits. No evidence for fracture, bone lesion or bone marrow edema. There is mild to moderate cartilage thinning throughout the medial and lateral compartments. No osteochondral defect. There is a linear area of abnormal signal in the inferior retropatellar cartilage which appears to represent a tiny cartilage fissure. This does not appear to be full thickness. The ACL, PCL, MCL, LCL complex and extensor complex are intact. There is a vertical tear at the junction of the body and posterior horn of the medial meniscus. This communicates with the femoral and tibial articular surfaces. There is increased signal throughout the anterior horn of the lateral meniscus. This may represent myxoid degeneration or tear. The body and posterior horn the lateral meniscus are normal. IMPRESSION: Diffuse subcutaneous edema. Very large joint effusion. Moderate popliteal cyst. Rupture of a popliteal cyst is difficult to exclude. Vertical tear in the medial meniscus as described. Abnormal anterior horn of the lateral meniscus. Question a subtle linear fissure in the retropatellar cartilage. This appears to be 50% thickness.
== END 2017-05-30 07:17 | disposition home or self-care (01) ==
LOC: MRI 07:16
PROVIDERS: ATTEND Orthopaedic Surgery
DX: S83.242A Other tear of medial meniscus, current injury, left knee, initial encounter (principal); M25.862 Other specified joint disorders, left knee; X58.XXXA Exposure to other specified factors, initial encounter; Y93.89 Activity, other specified; Y92.89 Other specified places as the place of occurrence of the external cause; Y99.8 Other external cause status
CPT/HCPCS: 73721

== ENCOUNTER 2017-06-16 10:03 | Day surgery (SDC) | payer OTHER ==
[~2017-06-16 10:03] MED LIST: NACL 0.9% 1000 ML 1,000 ML IV SCH; PEPCID PO NR; VERSED IV NR
--- NOTE | 2017-06-16 10:29 | Anesthesia Consultation ---
Anesthesia Consult and Med Hx Date of service: 06/16/17 - Airway Anesthetic Teeth Evaluation: Poor ROM Head & Neck: Adequate Mental/Hyoid Distance: Adequate Mallampati Class: Class III Intubation Access Assessment: Probably Good - Pulmonary Exam CTA: Yes - Cardiac Exam Cardiac Exam: RRR - Pre-Operative Health Status ASA Pre-Surgery Classification: ASA3 Proposed Anesthetic Plan: General - Pulmonary Hx Smoking: Yes (STOPPED 10/2016) Hx Asthma: No Hx Pneumonia: No Hx Sleep Apnea: Yes (DX SLEEP APNEA , NO CPAP) - Cardiovascular System Hx Hypertension: Yes (2011) Hx Coronary Artery Disease: Yes Hx Heart Attack/AMI: Yes (2013) Hx Angina: No (denies chest pain, chest tightness. She is very active.) - Central Nervous System Hx Back Pain: Yes - Hematic Hx Anemia: Yes - Other Systems Hx Substance Use: Yes (HX ADDICTION"DID EVERY DRUG"-CLEAN X 29 YRS) Hx Cancer: No - Additional Comments Anesthesia Medical History Comments: Multiple missing teeth. Remaining dentition is poor and/or loose. Patient admits to smoking yesterday. NAC previously.
--- NOTE | 2017-06-16 10:39 | Anesthesia Day of Surgery ---
Anesthesia Day of Surgery - Day of Surgery Patient Examined: Yes Patient H&P Reviewed: Yes Patient is NPO: Yes
[2017-06-16] MEDS ORDERED: ANCEF/STERILE WATER 2 GM/20 ML IV NR (11:00)
[2017-06-16 11:17] LABS: Basophils % (Auto) 0.9 % (0.0-1.8); Eosinophils % (Auto) 2.6 % (0.0-4.3); Hematocrit 35.8 % (30.3-42.9); Hemoglobin 11.9 gm/dl (10.1-14.3); Mean Corpuscular HGB Conc 33 % (30-34); Mean Corpuscular Hemoglobin 30 pg (28-32); Mean Corpuscular Volume 89 fl (79-97); Platelet Count 222 K/mm3 (140-440); Red Cell Distribution Width 15.8 % (13.2-15.2); White Blood Count 4.4 K/mm3 (4.5-11.0)
[2017-06-16] MEDS ORDERED: DILAUDID IV NR (11:26)
[2017-06-16] MEDS ORDERED: LOPRESSOR PO SCH (11:27)
[2017-06-16 11:35] LABS: Anion Gap 16 mmol/L; BUN/Creatinine Ratio 15.71; Blood Urea Nitrogen 11 mg/dL (7-17); Carbon Dioxide 22 mmol/L (22-30); Chloride 107.8 mmol/L (98-107); Glucose 126 mg/dL (65-100); Potassium 3.8 mmol/L (3.6-5.0); Sodium 142 mmol/L (137-145)
[2017-06-16] MEDS ORDERED: SUBLIMAZE ONE (12:19)
[2017-06-16] MEDS ORDERED: DIPRIVAN 10 MG/ML IV ONE (12:19)
[2017-06-16] MEDS ORDERED: NACL 0.9% IR ONE (13:22)
[2017-06-16] MEDS ORDERED: MARCAINE-EPI/PF 0.5%-1:200,000 IJ ONE (13:22)
[2017-06-16] MEDS ORDERED: DEPO-MEDROL INTRA-ARTI ONE (13:22)
[2017-06-16] MEDS ORDERED: PROAIR IH ONE (13:53)
[2017-06-16] MEDS ORDERED: DEPO-MEDROL ONE (14:00)
[2017-06-16] MEDS ORDERED: MARCAINE-EPI/PF 0.5%-1:200,000 INFILTRATI ONE (14:00)
[2017-06-16] MEDS ORDERED: XYLOCAINE MPF 2% ONE (14:16)
[2017-06-16] MEDS ORDERED: ZOFRAN ONE ×2 (14:16→15:46)
[2017-06-16] MEDS ORDERED: AMIDATE IV ONE (14:16)
[2017-06-16] MEDS ORDERED: ROBINUL ONE (14:16)
[2017-06-16] MEDS ORDERED: NEO SYNEPHRINE/NS Syringe(OR USE) IV ONE (14:30)
[2017-06-16] MEDS ORDERED: TORADOL ONE (14:41)
[2017-06-16] MEDS ORDERED: PROVENTIL IH ONE (14:57)
--- NOTE | 2017-06-16 14:58 | Procedure Note ---
Date of procedure: 06/16/17 Pre-op diagnosis: medial meniscus tear left knee Post-op diagnosis: same Procedure: Procedure Arthroscopy left knee with partial medial meniscectomy and abrasion chondroplasty medial compartment Indications A 56-year-old female who complains of persistent left knee pain and swelling for the past several months patient has tried conservative treatment in the past with little to no relief and MRI scan was done findings which reveal a tear of the medial meniscus posterior horn. Procedure The patient was brought to the OR and placed in the OR table in the supine position following induction and intubation by anesthesia the patient's left lower extremity was prepped and draped in the usual sterile manner. A timeout procedure was done to identify the patient and the correct operative site The leg was exsanguinated followed by inflation of the pneumatic tourniquet to 300 mmHg. 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 The anterior cruciate ligament was inspected and appeared to be intact the scope was then placed into the lateral compartment. She was noted to have some minor changes in the lateral meniscus but no kingsley tear noted in the patellofemoral joint was also inspected and again there is grade 2-3 changes. Following visual inspection of the joint a arthroscopic shaver was brought in the articular cartilage was debrided down to healthy-appearing cartilage tissue A straight basket forceps was used to trim the tear in the posterior horn again this was debrided back to healthy-appearing cartilage tissue following the meniscectomy and abrasion chondroplasty the knee joint was copiously irrigated removing any soft tissue debris next the stab wounds were repaired followed by injection of Depo-Medrol and Marcaine mixture. Routine postoperative dressings were applied patient tolerated the procedure there were no complications. Anesthesia: GETA Surgeon: SHANNA DOBBS Estimated blood loss: minimal Condition: stable Disposition: PACU
[2017-06-16] MEDS ORDERED: APRESOLINE IV PRN (15:09)
[2017-06-16] MEDS ORDERED: ZOFRAN IV PRN (15:10)
[2017-06-16] MEDS ORDERED: PERCOCET 5/325 PO PRN (15:10)
[2017-06-16] MEDS ORDERED: DILAUDID IV PRN (15:10)
--- NOTE | 2017-06-16 15:10 | Post Anesthesia Evaluation ---
- Post Anesthesia Evaluation Patient Participated: Yes Airway Patent: Yes Stable Respiratory Function: Yes Nausea/Vomiting: No Temp > 96.8F: Yes Pain Manageable: Yes Adequeate Hydration: Yes Anesthesia Complications: No Block Receding Appropriately: Not Applicable Patient on Ventilator: No
[2017-06-16] MEDS ORDERED: APRESOLINE ONE (15:12)
[2017-06-16] MEDS ORDERED: ZOFRAN IV ONE (15:51)
[2017-06-16] MEDS ORDERED: NORCO 7.5/325 PO PRN (16:33)
[2017-06-16] MEDS ORDERED: NORCO 7.5/325 ONE (16:34)
[2017-06-16] MEDS ORDERED: NORCO 5/325 PO ONE ×2 (16:34→17:00)
[2017-06-16 16:51] VITALS: BP 128/77
== END 2017-06-16 17:35 | disposition home or self-care (01) ==
LOC: OR 10:03
PROVIDERS: ATTEND Orthopaedic Surgery
DX: S83.242A Other tear of medial meniscus, current injury, left knee, initial encounter (principal); M94.262 Chondromalacia, left knee; I10 Essential (primary) hypertension; I25.10 Atherosclerotic heart disease of native coronary artery without angina pectoris; D64.9 Anemia, unspecified; F19.20 Other psychoactive substance dependence, uncomplicated; Z87.891 Personal history of nicotine dependence; X58.XXXA Exposure to other specified factors, initial encounter
CPT/HCPCS: 29879; 29881; 36415; 80048; 82962; 85025; J0360; J0690; J1030; J1040; J1170; J1885; J2250; J2370; J2405; J2704; J3010; J7030

== ENCOUNTER 2017-07-28 06:12 | Outpatient (CLI) | payer OTHER ==
--- NOTE | 2017-07-28 11:07 | Cat Scan Report ---
CT ABDOMEN AND PELVIS WITHOUT CONTRAST INDICATION: Upper abdominal pain, bloating. COMPARISON: 05/16/2015 FINDINGS: Abdomen and pelvis CT performed following oral contrast only. LUNG BASES: Slight bibasilar scarring. Smaller heart size. ABDOMEN: Please note that sensitivity to detect small visceral lesions is limited due to the absence of intravenous contrast. Mild diffuse fatty hepatic infiltration now noted. Stable 1.5 cm peripheral right hepatic lobe hypodensity, axial image 46, series 2. Otherwise grossly unremarkable unenhanced liver, spleen, partly extrahepatic gallbladder, pancreas, adrenals, nonaneurysmal abdominal aorta with few atherosclerotic calcifications and IVC. No hydronephrosis with tiny nonobstructing bilateral renal calculi as on the right superiorly and on the left inferiorly. A 1.8 cm right renal cortical cyst superiorly also noted. No ascites or significant adenopathy. Opacified small bowel nonobstructive, though extension into a small umbilical hernia again seen as on axial image 110. Normal appendix. Non-opacified colon with mild stool. PELVIS: Slightly lobulated, myomatous uterus again noted with grossly unremarkable adnexa and non-opacified urinary bladder and the rectosigmoid. Few small pelvic phleboliths. No free fluid or significant adenopathy. Lower lumbar disc degeneration with narrowing and vacuum phenomena noted at L4-L5 and L5-S1. Mild lower thoracic and mid lumbar spine degenerative spurring as well. Lower lumbar facet arthropathy. CONCLUSION: 1. Interval development of fatty hepatic infiltration. Stable peripheral right hepatic hypodensity. 2. Small umbilical hernia containing nonobstructive small bowel again noted. 3. No acute other significant abnormality with various incidental findings, including tiny nonobstructing bilateral nephrolithiasis, right renal cyst, uterine fibroids and few spinal degenerative changes, amongst others, as above. Thank you for the opportunity to participate in this patient's care.
== END 2017-07-28 06:13 | disposition home or self-care (01) ==
LOC: CT 06:12
PROVIDERS: ATTEND Internal Medicine Gastroenterology
DX: N20.0 Calculus of kidney (principal); N28.1 Cyst of kidney, acquired; K42.9 Umbilical hernia without obstruction or gangrene; K76.0 Fatty (change of) liver, not elsewhere classified; K58.9 Irritable bowel syndrome, unspecified; K66.0 Peritoneal adhesions (postprocedural) (postinfection); D25.9 Leiomyoma of uterus, unspecified; R14.0 Abdominal distension (gaseous); J98.4 Other disorders of lung; I70.0 Atherosclerosis of aorta; I87.8 Other specified disorders of veins; M12.88 Other specific arthropathies, not elsewhere classified, other specified site; M51.36 Other intervertebral disc degeneration, lumbar region
CPT/HCPCS: 74176

== ENCOUNTER 2017-12-23 21:38 | Emergency (ER) | payer OTHER ==
[2017-12-24 04:53] LABS: Basophils % (Auto) 0.3 % (0.0-1.8); Eosinophils # (Auto) 0.1 K/mm3 (0.0-0.4); Eosinophils % (Auto) 1.2 % (0.0-4.3); Hematocrit 34.8 % (30.3-42.9); Hemoglobin 11.5 gm/dl (10.1-14.3); Lymphocytes # (Auto) 2.1 K/mm3 (1.2-5.4); Lymphocytes % (Auto) 35.1 % (13.4-35.0); Mean Corpuscular HGB Conc 33 % (30-34); Mean Corpuscular Hemoglobin 32 pg (28-32); Mean Corpuscular Volume 95 fl (79-97); Monocytes # (Auto) 0.4 K/mm3 (0.0-0.8); Monocytes % (Auto) 6.3 % (0.0-7.3); Platelet Count 272 K/mm3 (140-440); Red Blood Count 3.66 M/mm3 (3.65-5.03); Red Cell Distribution Width 14.4 % (13.2-15.2)
[2017-12-24 05:02] LABS: INR 0.91 (0.87-1.13)
[2017-12-24 05:03] LABS: Partial Thromboplastin Time 31.8 Sec. (24.2-36.6)
[2017-12-24 05:16] VITALS: BP 126/69
[2017-12-24 05:17] LABS: Alanine Aminotransferase 14 units/L (7-56); Albumin 4.2 g/dL (3.9-5); BUN/Creatinine Ratio 24; Blood Urea Nitrogen 22 mg/dL (7-17); Calcium 9.5 mg/dL (8.4-10.2); Hemolysis Index 0
--- NOTE | 2017-12-24 06:32 | Emergency Department Report ---
ED General Adult HPI - General Chief complaint: Extremity Injury, Lower Stated complaint: BILATERAL LEG EDEMA Time Seen by Provider: 12/24/17 06:27 Source: patient Mode of arrival: Ambulatory Limitations: No Limitations - History of Present Illness Initial comments: Patient states that she's had [place]ising and leg soreness related to going up and down steps. She states that she had some bruises on her legs but they have gotten better. She has a bruise on her arm. These are related to incidental trauma. She is on Plavix. She thinks it is unexpected to have bruising on Plavix because she hasn 't had that before. Her coworkers had told her that it was common. She states that her legs have been swollen but they're actually not swollen now. She doesn 't complain of difficulty in breathing cough chest pain abdominal pain fever or chills or any systemic symptoms. She says no signs of GI bleeding. She doesn' t complain of headache or any neurological change. She is somewhat angry that she has been here all night waiting on physician examination. Patient states that she has been on Plavix for 4-5 years status post [place]. -: days(s) Location: lower extremity Radiation: non-radiation Severity scale (0 -10): 5 Associated Symptoms: denies other symptoms - Related Data Home Medications Medication Instructions Recorded Confirmed Last Taken Aspirin [Adult Low Dose Aspirin EC] 81 mg PO QDAY 01/27/17 06/11/17 06/11/17 AtorvaSTATin [Lipitor] 20 mg PO QHS 05/12/17 06/11/17 06/14/17 Clopidogrel [Plavix] 75 mg PO QDAY 05/12/17 06/11/17 06/11/17 Valsartan/Hydrochlorothiazide 1 each PO DAILY 05/12/17 06/11/17 06/14/17 [Valsartan-Hctz 160-25 mg Tab] buPROPion SR [Wellbutrin Sr] 150 mg PO QAM 05/12/17 06/11/17 06/14/17 metFORMIN [Glucophage] 500 mg PO QDAY 05/12/17 06/11/17 06/14/17 Acetaminophen/Diphenhydramine 1 each PO PRN PRN 06/11/17 06/11/17 06/15/17 [Tylenol Pm Ex-Strength Caplet] HYDROcodone/APAP 7.5-325 [[place] 1 each PO Q6HR PRN 06/11/17 06/11/17 06/15/17 7.5/325] Pantoprazole [Protonix] 40 mg PO QDAY 06/11/17 06/11/17 06/14/17 Topiramate [Topamax TAB] 50 mg PO BID 06/11/17 06/11/17 06/11/17 traMADol [Ultram] 50 mg PO Q4HR PRN 06/11/17 06/11/17 06/15/17 Previous Rx's Medication Instructions Recorded Last Taken Type Metoprolol [Lopressor TAB] 50 mg PO QDAY #30 tablet 06/15/14 06/16/17 11:32 Rx HYDROcodone/APAP 7.5-325 [[place] 1 each PO Q6HR PRN #30 tablet 06/16/17 Unknown Rx 7.5-325 mg TAB] traMADol [Ultram] 50 mg PO Q6HR PRN #14 tablet 12/24/17 Unknown Rx Allergies Allergy/AdvReac Type Severity Reaction Status Date / Time No Known Allergies Allergy Verified 12/23/17 21:53 ED Review of Systems ROS: Stated complaint: BILATERAL LEG EDEMA Other details as noted in HPI Constitutional: denies: chills, fever Eyes: denies: eye pain, eye discharge, vision change ENT: denies: ear pain, throat pain Respiratory: denies: cough, shortness of breath, wheezing Cardiovascular: denies: chest pain, palpitations Endocrine: no symptoms reported Gastrointestinal: denies: abdominal pain, nausea, diarrhea Genitourinary: denies: urgency, dysuria, discharge Musculoskeletal: denies: back pain, joint swelling, arthralgia Skin: denies: rash, lesions Neurological: denies: headache, weakness, paresthesias Psychiatric: denies: anxiety, depression Hematological/Lymphatic: denies: easy bleeding, easy bruising ED Past Medical Hx - Past Medical History Hx Hypertension: Yes Hx Heart Attack/AMI: Yes Hx Congestive Heart Failure: Yes Hx Diabetes: No (STATES TAKES METFORMIN FOR WT LOSS) Hx GERD: Yes Hx Arthritis: Yes (PIERRE) Hx Headaches / Migraines: Yes (MIGRAINES) Hx Asthma: No Additional medical history: Chronic low back pain. naval hernia, knee Pain, Arthritis - Surgical History Hx Coronary Stent: Yes (X 2 2013) Additional Surgical History: Back surgery x2-epidurals. partial hysterectomy - Social History Smoking Status: Current Some Day Smoker Substance Use Type: None - Medications Home Medications: Home Medications Medication Instructions Recorded Confirmed Last Taken Type Metoprolol [Lopressor TAB] 50 mg PO QDAY #30 tablet 06/15/14 06/16/17 06/16/17 11:32 Rx Aspirin [Adult Low Dose Aspirin EC] 81 mg PO QDAY 01/27/17 06/11/17 06/11/17 History AtorvaSTATin [Lipitor] 20 mg PO QHS 05/12/17 06/11/17 06/14/17 History Clopidogrel [Plavix] 75 mg PO QDAY 05/12/17 06/11/17 06/11/17 History Valsartan/Hydrochlorothiazide 1 each PO DAILY 05/12/17 06/11/17 06/14/17 History [Valsartan-Hctz 160-25 mg Tab] buPROPion SR [Wellbutrin Sr] 150 mg PO QAM 05/12/17 06/11/17 06/14/17 History metFORMIN [Glucophage] 500 mg PO QDAY 05/12/17 06/11/17 06/14/17 History Acetaminophen/Diphenhydramine 1 each PO PRN PRN 06/11/17 06/11/17 06/15/17 History [Tylenol Pm Ex-Strength Caplet] HYDROcodone/APAP 7.5-325 [[place] 1 each PO Q6HR PRN 06/11/17 06/11/17 06/15/17 History 7.5/325] Pantoprazole [Protonix] 40 mg PO QDAY 06/11/17 06/11/17 06/14/17 History Topiramate [Topamax TAB] 50 mg PO BID 06/11/17 06/11/17 06/11/17 History traMADol [Ultram] 50 mg PO Q4HR PRN 06/11/17 06/11/17 06/15/17 History HYDROcodone/APAP 7.5-325 [[place] 1 each PO Q6HR PRN #30 tablet 06/16/17 Unknown Rx 7.5-325 mg TAB] traMADol [Ultram] 50 mg PO Q6HR PRN #14 tablet 12/24/17 Unknown Rx ED Physical Exam - General Limitations: No Limitations General appearance: alert, in no apparent distress - Head Head exam: Present: atraumatic, normocephalic - Eye Eye exam: Present: normal appearance, PERRL, EOMI. Absent: scleral icterus - ENT ENT exam: Present: mucous membranes moist - Neck Neck exam: Present: normal inspection. Absent: tenderness, meningismus - Respiratory Respiratory exam: Present: normal lung sounds bilaterally. Absent: respiratory distress - Cardiovascular Cardiovascular Exam: Present: regular rate, normal rhythm. Absent: systolic murmur, diastolic murmur, rubs, gallop - GI/Abdominal GI/Abdominal exam: Present: soft, normal bowel sounds. Absent: distended, tenderness, guarding, rebound, rigid - Extremities Exam Extremities exam: Present: normal inspection, normal capillary refill, joint swelling (minimal joint swelling associated with left knee. Patient has had previous arthroscopic surgery). Absent: full ROM, tenderness, pedal edema, calf tenderness - Back Exam Back exam: Present: normal inspection - Neurological Exam Neurological exam: Present: alert, oriented X3, CN II-XII intact. Absent: motor sensory deficit - Psychiatric Psychiatric exam: Present: normal affect, normal mood - Skin Skin exam: Present: warm, dry, intact, ecchymosis. Absent: rash ED Course Vital Signs 12/23/17 12/24/17 12/24/17 21:54 03:44 05:14 Temperature 98.4 F 98.3 F Pulse Rate 79 75 72 Respiratory 16 16 16 Rate Blood Pressure 108/58 109/51 Blood Pressure 126/69 [Left] O2 Sat by Pulse 97 98 Oximetry - Reevaluation(s) Reevaluation #1: Patient has a perhaps 3 cm round ecchymosis on her right deltoid area. There are some tiny resolving ecchymoses in the pretibial area. There is no leg edema. 12/24/17 07:01 Reevaluation #2: Patient seems to want me to resolve her orthopedic issues and work related issues. She does need to get advice concerning her activity from her orthopedic physician who she states has cleared her for work. She should follow up with an appropriate workman's comp physician. She should consult with her cancer researcher as to whether or not Plavix should be continued or whether she can just take aspirin. She has no indications for admission to the hospital at this time. 12/24/17 07:04 ED Medical Decision Making - Lab Data Result diagrams: 12/24/17 04:35 12/24/17 04:35 Laboratory Results - last 24 hr 12/24/17 12/24/17 12/24/17 04:35 04:35 04:35 WBC 5.8 RBC 3.66 Hgb 11.5 Hct 34.8 MCV 95 MCH 32 MCHC 33 RDW 14.4 Plt Count 272 Lymph % (Auto) 35.1 H Clark % (Auto) 6.3 Eos % (Auto) 1.2 Baso % (Auto) 0.3 Lymph # 2.1 Clark # 0.4 Eos # 0.1 Baso # 0.0 Seg Neutrophils % 57.1 Seg Neutrophils # 3.3 PT 12.7 INR 0.91 APTT 31.8 Sodium 141 Potassium 3.9 Chloride 99.2 Carbon Dioxide 27 Anion Gap 19 BUN 22 H Creatinine 0.9 Estimated GFR > 60 BUN/Creatinine Ratio 24 Glucose 107 H Calcium 9.5 Total Bilirubin 0.40 AST 13 ALT 14 Alkaline Phosphatase 107 Troponin T < 0.010 NT-Pro-B Natriuret Pep 57.78 Total Protein 6.7 Albumin 4.2 Albumin/Globulin Ratio 1.7 Critical care attestation.: If time is entered above; I have spent that time in minutes in the direct care of this critically ill patient, excluding procedure time. ED Disposition Clinical Impression: Ecchymosis Adverse effects of medication Qualifiers: Encounter type: initial encounter Qualified Code(s): T88.7XXA - Unspecified adverse effect of drug or medicament, initial encounter Musculoskeletal leg pain Qualifiers: Laterality: unspecified laterality Qualified Code(s): M79.606 - Pain in leg, unspecified Disposition: DC-01 TO HOME OR SELFCARE Is pt being admited?: No Does the pt Need Aspirin: No Condition: Stable Instructions: Arthralgia (ED), Musculoskeletal Pain (ED) Additional Instructions: I would recommend that you consult with your cancer researcher concerning whether you need to continue the Plavix. Consult with your orthopedist concerning your work limitations. See workman's comp related or primary care physician. Rx as needed for pain. Return any acute change or problems. Prescriptions: traMADol [Ultram] 50 mg PO Q6HR PRN #14 tablet PRN Reason: Pain Referrals: SCOTT EDDY MD [Primary Care Provider] - 3-5 Days usual, orthopedist and cancer researcher [Other] - 3-5 Days Time of Disposition: 07:06
== END 2017-12-24 07:26 | disposition home or self-care (01) ==
LOC: ED 21:38
DX: M79.604 Pain in right leg (principal); M79.605 Pain in left leg; I11.0 Hypertensive heart disease with heart failure; K21.9 Gastro-esophageal reflux disease without esophagitis; M19.90 Unspecified osteoarthritis, unspecified site; M54.5 Low back pain; G89.29 Other chronic pain; F17.200 Nicotine dependence, unspecified, uncomplicated; Z79.82 Long term (current) use of aspirin; Z79.01 Long term (current) use of anticoagulants; Z90.711 Acquired absence of uterus with remaining cervical stump; Z95.1 Presence of aortocoronary bypass graft
CPT/HCPCS: 36415; 80053; 83880; 84484; 85025; 85610; 85730; 93005; 93010; 99283

== ENCOUNTER 2018-01-29 07:38 | Outpatient (CLI) | payer OTHER ==
--- NOTE | 2018-01-30 07:37 | Magnetic Resonance Report ---
MRI UPPER EXTREMITY JOINT LEFT WITHOUT CONTRAST HISTORY: Left shoulder pain. TECHNIQUE: Multiple T1 and T2-weighted images were obtained with and without fat suppression through the left shoulder. FINDINGS: There are moderate osteoarthritic changes at the a.c. joint. Severe osteoarthritic changes are identified at the glenohumeral joint. There is a large inferior spur from the humeral head neck junction measuring up to 2.5 x 1.0 cm in coronal plane. The spur extends into the inferior recess of the joint space. There is extensive degenerative spurring and small subchondral cysts in the lateral humeral head. No evidence for fracture, dislocation or bone lesion. There is a large full thickness tear in the distal, anterior supraspinatus tendon at the level of the acromion. This probably extends to involve the rotator cuff interval. There is increased signal and thickening of the distal infraspinatus tendon and subscapularis tendon consistent with tendinosis but no definite full-thickness tear is identified. The teres minor tendon is within normal limits. The biceps tendon appears intact. Advanced degenerative changes are identified in the labrum. A degenerative tear inferiorly is likely present. No para meniscal cyst. Moderate to large joint effusion is identified. Large fluid is identified within the subdeltoid bursa. IMPRESSION: Advanced osteoarthritis. Large full-thickness tear of the distal supraspinatus tendon as outlined above. Moderate tendinosis of the distal infraspinatus tendon and subscapularis tendon. Probable degenerative tear of the inferior labrum. Large joint effusion and bursal fluid.
== END 2018-01-29 07:39 | disposition home or self-care (01) ==
LOC: MRI 07:38
PROVIDERS: ATTEND Orthopaedic Surgery
DX: M75.102 Unspecified rotator cuff tear or rupture of left shoulder, not specified as traumatic (principal); M19.012 Primary osteoarthritis, left shoulder

== ENCOUNTER 2019-08-30 12:04 | Emergency (ER) | payer OTHER ==
[2019-08-30 13:08] VITALS: BP 176/100
--- NOTE | 2019-08-30 13:17 | Emergency Department Report ---
ED Back Pain/Injury HPI - General Chief Complaint: Back Pain/Injury Stated Complaint: SCIATIC NERVE PAIN Time Seen by Provider: 08/30/19 13:06 Source: patient Limitations: No Limitations - History of Present Illness Initial Comments: This is a 58-year-old female nontoxic, well nourished in appearance, no acute signs of distress presents to the ED with c/o of acute on chronic lower back pain. Patient stated that 2 days she was in a bus and started to have pains. Patient denies any trauma. Stated sees a pain specialities for chronic back pains. Denies any bladder or bowel instability. Stated pain radiates to right leg. Patient denies any urinary symptoms. Denies any fever, chills, nausea, vomiting, headache, stiff neck, chest pain or shortness of breath. Patient den ies any numbness or tingling. Denies any allergies. MD Complaint: back pain -: days(s) Similar Symptoms Previously: Yes Radiation: right leg Severity: mild Severity scale (0 -10): 8 Quality: aching Consistency: intermittent Improves With: immobilization, sitting upright Worsens With: movement, walking Context: while lifting, turning/twisting Associated Symptoms: denies other symptoms. denies: confusion, weakness, chest pain, numbness, difficulty walking, cough, difficulty urinating, diaphoresis, incontinence, fever/chills, constipation, headaches, abdominal pain, loss of appetite, malaise, nausea/vomiting, rash, seizure, shortness of breath, syncope - Related Data Home Medications Medication Instructions Recorded Confirmed Last Taken Aspirin [Adult Low Dose Aspirin EC] 81 mg PO QDAY 01/27/17 08/30/19 06/11/17 AtorvaSTATin [Lipitor] 20 mg PO QHS 05/12/17 08/30/19 06/14/17 Clopidogrel [Plavix] 75 mg PO QDAY 05/12/17 08/30/19 06/11/17 Valsartan/Hydrochlorothiazide 1 each PO DAILY 05/12/17 08/30/19 06/14/17 [Valsartan-Hctz 160-25 mg Tab] buPROPion SR [Wellbutrin Sr] 150 mg PO QAM 05/12/17 08/30/19 06/14/17 metFORMIN [Glucophage] 500 mg PO QDAY 05/12/17 08/30/19 06/14/17 Acetaminophen/Diphenhydramine 1 each PO PRN PRN 06/11/17 08/30/19 06/15/17 [Tylenol Pm Ex-Strength Caplet] HYDROcodone/APAP 7.5-325 [[place] 1 each PO Q6HR PRN 06/11/17 08/30/19 06/15/17 7.5/325] Pantoprazole [Protonix] 40 mg PO QDAY 06/11/17 08/30/19 06/14/17 Topiramate [Topamax TAB] 50 mg PO BID 06/11/17 08/30/19 06/11/17 traMADoL [Ultram] 50 mg PO Q4HR PRN 06/11/17 08/30/19 06/15/17 Previous Rx's Medication Instructions Recorded Last Taken Type Metoprolol [Lopressor TAB] 50 mg PO QDAY #30 tablet 06/15/14 06/16/17 11:32 Rx Cyclobenzaprine [Flexeril] 10 mg PO QHS PRN #10 tablet 08/30/19 Unknown Rx Naproxen 500 mg PO Q12H PRN #20 tablet 08/30/19 Unknown Rx Allergies Allergy/AdvReac Type Severity Reaction Status Date / Time No Known Allergies Allergy Verified 08/24/18 09:23 ED Review of Systems ROS: Stated complaint: SCIATIC NERVE PAIN Other details as noted in HPI Constitutional: denies: chills, fever Eyes: denies: eye pain, eye discharge, vision change ENT: denies: ear pain, throat pain Respiratory: denies: cough, shortness of breath, wheezing Cardiovascular: denies: chest pain, palpitations Endocrine: no symptoms reported Gastrointestinal: denies: abdominal pain, nausea, diarrhea Genitourinary: denies: urgency, dysuria, discharge Musculoskeletal: back pain. denies: joint swelling, arthralgia Skin: denies: rash, lesions Neurological: denies: headache, weakness, paresthesias Psychiatric: denies: anxiety, depression Hematological/Lymphatic: denies: easy bleeding, easy bruising ED Past Medical Hx - Past Medical History Previous Medical History?: Yes Hx Hypertension: Yes (2011) Hx Heart Attack/AMI: Yes (X 2 ( 2010 , 2012)) Hx Congestive Heart Failure: Yes Hx Diabetes: Yes Hx GERD: Yes Hx Arthritis: Yes Hx Headaches / Migraines: Yes (MIGRAINES) Hx Kidney Stones: Yes Hx Asthma: Yes ( CHILD ONLY) Hx HIV: No Additional medical history: Chronic low back pain. naval hernia, knee Pain,Arthritis - Surgical History Past Surgical History?: Yes Hx Coronary Stent: Yes (X 2 2013) Additional Surgical History: Back surgery x2-epidurals. partial hysterectomy - Social History Smoking Status: Never Smoker Substance Use Type: None - Medications Home Medications: Home Medications Medication Instructions Recorded Confirmed Last Taken Type Metoprolol [Lopressor TAB] 50 mg PO QDAY #30 tablet 06/15/14 08/30/19 06/16/17 11:32 Rx Aspirin [Adult Low Dose Aspirin EC] 81 mg PO QDAY 01/27/17 08/30/19 06/11/17 History AtorvaSTATin [Lipitor] 20 mg PO QHS 05/12/17 08/30/19 06/14/17 History Clopidogrel [Plavix] 75 mg PO QDAY 05/12/17 08/30/19 06/11/17 History Valsartan/Hydrochlorothiazide 1 each PO DAILY 05/12/17 08/30/19 06/14/17 History [Valsartan-Hctz 160-25 mg Tab] buPROPion SR [Wellbutrin Sr] 150 mg PO QAM 05/12/17 08/30/19 06/14/17 History metFORMIN [Glucophage] 500 mg PO QDAY 05/12/17 08/30/19 06/14/17 History Acetaminophen/Diphenhydramine 1 each PO PRN PRN 06/11/17 08/30/19 06/15/17 History [Tylenol Pm Ex-Strength Caplet] HYDROcodone/APAP 7.5-325 [[place] 1 each PO Q6HR PRN 06/11/17 08/30/19 06/15/17 History 7.5/325] Pantoprazole [Protonix] 40 mg PO QDAY 06/11/17 08/30/19 06/14/17 History Topiramate [Topamax TAB] 50 mg PO BID 06/11/17 08/30/19 06/11/17 History traMADoL [Ultram] 50 mg PO Q4HR PRN 06/11/17 08/30/19 06/15/17 History Cyclobenzaprine [Flexeril] 10 mg PO QHS PRN #10 tablet 08/30/19 Unknown Rx Naproxen 500 mg PO Q12H PRN #20 tablet 08/30/19 Unknown Rx ED Physical Exam - General Limitations: No Limitations General appearance: alert, in no apparent distress - Head Head exam: Present: atraumatic, normocephalic - Neck Neck exam: Present: normal inspection, full ROM - Extremities Exam Extremities exam: Present: normal inspection, full ROM. Absent: tenderness - Back Exam Back exam: Present: normal inspection, full ROM, paraspinal tenderness (lumbar paraspinal). Absent: tenderness, CVA tenderness (R), CVA tenderness (L), muscle spasm, vertebral tenderness, rash noted - Expanded Back Exam Expanded Back exam: Absent: saddle anesthesia Back exam: Negative Straight Leg Raising: Left, Right - Neurological Exam Neurological exam: Present: alert, oriented X3, normal gait - Psychiatric Psychiatric exam: Present: normal affect, normal mood - Skin Skin exam: Present: warm, dry, intact, normal color. Absent: rash ED Course Vital Signs 08/30/19 13:07 Temperature 98.7 F Pulse Rate 84 Respiratory 20 Rate Blood Pressure 176/100 O2 Sat by Pulse 98 Oximetry - Reevaluation(s) Reevaluation #1: 08/30/19 13:15 Patient is speaking in full sentences with no signs of distress noted. ED Medical Decision Making - Medical Decision Making This is a 58-year-old female that presents with low back strain. Patient is stable was examined by me. There is no spinal tenderness. There is no cauda equina syndrome during examination. No bladder or bowel instability. Patient is discharged with muscle relaxant and NSAID. Patient was instructed not to operate any machinery while taking muscle relaxant as they cause her drowsiness. Patient was referred to Follow-up with a primary care doctor in 3-5 days or if symptoms worsen and continue return to emergency room as soon as possible. At time of discharge, the patient does not seem toxic or ill in appearance. No acute signs of distress noted. Patient agrees to discharge treatment plan of care. No further questions noted by the patient. This chart is dictated with using [employer] Critical care attestation.: If time is entered above; I have spent that time in minutes in the direct care of this critically ill patient, excluding procedure time. ED Disposition Clinical Impression: Low back strain Qualifiers: Encounter type: initial encounter Qualified Code(s): S39.012A - Strain of muscle, fascia and tendon of lower back, initial encounter Chronic back pain Qualifiers: Back pain location: low back pain Back pain laterality: bilateral Sciatica presence: with sciatica Sciatica laterality: sciatica of right side Qualified Code(s): M54.41 - Lumbago with sciatica, right side; G89.29 - Other chronic pain Disposition: TO HOME OR SELFCARE Is pt being admited?: No Does the pt Need Aspirin: No Condition: Stable Instructions: Low Back Strain (ED) Additional Instructions: Follow-up with a primary care doctor in 3-5 days or if symptoms worsen and continue return to emergency room as soon as possible. Prescriptions: Cyclobenzaprine [Flexeril] 10 mg PO QHS PRN #10 tablet PRN Reason: Muscle Spasm Naproxen 500 mg PO Q12H PRN #20 tablet PRN Reason: Pain, Moderate (4-6) Referrals: PRIMARY MD TAMARA [Primary Care Provider] - 3-5 Days JASVIR ZEPEDA MD [Staff Physician] - 3-5 Days [facility] [Outside] - 3[facility] Days [facility] - [facility]-5 Days
== END 2019-08-30 13:30 | disposition home or self-care (01) ==
LOC: ED 12:04
DX: S39.012A Strain of muscle, fascia and tendon of lower back, initial encounter (principal); I50.9 Heart failure, unspecified; I10 Essential (primary) hypertension; E11.9 Type 2 diabetes mellitus without complications; K21.9 Gastro-esophageal reflux disease without esophagitis; M19.90 Unspecified osteoarthritis, unspecified site; G43.909 Migraine, unspecified, not intractable, without status migrainosus; N20.0 Calculus of kidney; J45.909 Unspecified asthma, uncomplicated; Z90.710 Acquired absence of both cervix and uterus; Z98.890 Other specified postprocedural states; Z79.899 Other long term (current) drug therapy; X58.XXXA Exposure to other specified factors, initial encounter; Y93.89 Activity, other specified; Y92.811 Bus as the place of occurrence of the external cause; Y99.8 Other external cause status
CPT/HCPCS: 99281

== ENCOUNTER 2019-09-04 09:07 | Emergency (ER) | payer OTHER ==
[2019-09-04 09:17] VITALS: BP 170/105
--- NOTE | 2019-09-04 09:19 | Emergency Department Report ---
Stated Complaint: BP HIGH/ Time Seen by Provider: 09/04/19 09:14 - HPI History of Present Illness: 59 y/o female come for sciatic nerve pain. Was seen here earlier this week. Has had to back surgeries. Has been taking Naproxen and flexeril Reports that she does have a PCP and was told to f/u in the ER. - ROS Review of Systems: back pain. - Exam Physical Exam: AxO times 3 ambulating. NAD Patient is picking up her grandson in the lobby. MSE screening note: Focused history and physical exam performed. Due to findings the following was ordered: Patient was seen earlier this week and has been. Patient discussed with doctor:: JARRET ZIMMERMAN ED Disposition for MSE Condition: Stable
== END 2019-09-04 09:30 | disposition home or self-care (01) ==
LOC: ED 09:07
DX: M54.31 Sciatica, right side (principal); Z53.21 Procedure and treatment not carried out due to patient leaving prior to being seen by health care provider

== ENCOUNTER 2022-04-25 17:08 | Emergency (ER) | payer OTHER ==
--- NOTE | 2022-04-25 17:44 | Event Note ---
ED Screening Note ED Screening Note: 61-year-old female with right arm numbness, right leg weakness, difficulty walking x4 days. Daughter reports that her speech has also changed, but she has been stuttering. History of hypertension, no history of CVA or TIA Last known well 4 days ago. No history of head injury General: Nontoxic appearing no acute distress Cardiac: Regular rate, normal heart sounds Respiratory: Normal lung sounds bilaterally no use of surveyor chain helper muscles GI/-normal sounds, nontender no guarding Musculoskeletal-normal inspection full range of motion Neuro-alert oriented x4. Speech is clear In the setting of a significantly high volume and record number of patients presenting to the emergency department and the fact that we have a limited space to see patients we have implemented the provider in triage protocol this allows an expedited initial exam of patients that might otherwise have left without being seen or who would wait longer than usual to be seen by provider. I interviewed the patient and performed a limited physical exam. This patient is a pulled from the waiting room to triage room for an initial assessment of adrenal studies and then returned to the waiting room pending results of the studies. The ultimate final evaluation and disposition may be performed by another provider depending on room and provider availability.
[2022-04-25 17:58] LABS: Basophils % (Auto) 0.5 % (0.0-1.8); Eosinophils # (Auto) 0.1 K/mm3 (0.0-0.4); Eosinophils % (Auto) 2.6 % (0.0-4.3); Hematocrit 38.3 % (30.3-42.9); Hemoglobin 12.8 gm/dl (10.1-14.3); Lymphocytes # (Auto) 1.1 K/mm3 (1.2-5.4); Lymphocytes % (Auto) 29.8 % (13.4-35.0); Mean Corpuscular HGB Conc 33 % (30-34); Mean Corpuscular Volume 94 fl (79-97); Monocytes # (Auto) 0.2 K/mm3 (0.0-0.8); Monocytes % (Auto) 4.9 % (0.0-7.3); Platelet Count 192 K/mm3 (140-440); Red Cell Distribution Width 14.9 % (13.2-15.2)
[2022-04-25 18:09] LABS: INR 0.88 (0.87-1.13)
[2022-04-25 18:10] LABS: Partial Thromboplastin Time 31.2 Sec. (24.2-36.6)
[2022-04-25 18:28] LABS: Alanine Aminotransferase 16 units/L (7-56); Albumin 4.2 g/dL (3.9-5); BUN/Creatinine Ratio 16; Blood Urea Nitrogen 13 mg/dL (7-17); Calcium 9.6 mg/dL (8.4-10.2); Hemolysis Index 1
--- NOTE | 2022-04-25 18:30 | Cat Scan Report ---
CT HEAD WITHOUT CONTRAST INDICATION / CLINICAL INFORMATION: numbness right arm, right leg x 4 days, r/o CVA. TECHNIQUE: All CT scans at this location are performed using CT dose reduction for ALARA by means of automated exposure control. COMPARISON: None available. FINDINGS: CEREBRAL/CEREBELLAR PARENCHYMA: No significant abnormality. No acute territorial infarct. No signific ant atrophy for patient age. HEMORRHAGE: None. EXTRA-AXIAL SPACES: Normal in size and morphology for the patient's age. VENTRICULAR SYSTEM: Normal in size and morphology for the patient's age. MIDLINE SHIFT / HERNIATION: None. ORBITS: Normal as visualized. SOFT TISSUES/SKULL: No scalp hematoma or skull fracture. PARANASAL SINUSES/MASTOID AIR CELLS: Normal as visualized. IMPRESSION: 1. No acute intracranial abnormality. Signer Name: Blake Krueger MD Signed: 04/25/2022 6:26 PM Workstation Name: [id number]
--- NOTE | 2022-04-26 00:58 | Emergency Department Report ---
ED General Adult HPI - General Chief complaint: Neuro Symptoms/Deficit Stated complaint: RT SIDE NUMBNESS/SLURRED SPEECH Time Seen by Provider: 04/26/22 00:50 Source: patient Mode of arrival: Ambulatory Limitations: No Limitations - History of Present Illness Initial comments: 61 yo female who present with right shoulder pain that started about 2 days ago after a reports that she slept on her right side overnight. She mentioned that she can not raise her shoulder above her head due to pain. She also reports some numbness on that side as well. She mentioned difficulty working and and right leg weakness x 4 days. No other modifying or associated factors reported. Pt was seen earlier for medical screening where CT head was done with routine labs that were reviewed to be wnl. - Related Data Home Medications Medication Instructions Recorded Confirmed Last Taken Aspirin [Adult Low Dose Aspirin EC] 81 mg PO QDAY 01/27/17 12/20/19 06/11/17 AtorvaSTATin [Lipitor] 20 mg PO QHS 05/12/17 12/20/19 06/14/17 Clopidogrel [Plavix] 75 mg PO QDAY 05/12/17 12/20/19 06/11/17 Valsartan/Hydrochlorothiazide 1 each PO DAILY 05/12/17 12/20/19 06/14/17 [Valsartan-Hctz 160-25 mg Tab] metFORMIN [Glucophage] 500 mg PO QDAY 05/12/17 12/20/19 06/14/17 Pantoprazole [Protonix] 40 mg PO QDAY 06/11/17 12/20/19 06/14/17 Topiramate [Topamax TAB] 50 mg PO BID 06/11/17 12/20/19 06/11/17 traMADoL [Ultram] 50 mg PO Q4HR PRN 06/11/17 12/20/19 06/15/17 tiZANidine [Zanaflex 4mg TAB] 4 mg PO TID 12/20/19 12/20/19 Unknown Previous Rx's Medication Instructions Recorded Last Taken Type Metoprolol [Lopressor TAB] 50 mg PO QDAY #30 tablet 06/15/14 06/16/17 11:32 Rx Erythromycin [Erythromycin Ophth 1 strip OS QID 10 Days #1 tube 08/05/20 Unknown Rx Oint] Ibuprofen [Motrin 600 MG tab] 600 mg PO Q8H PRN #30 tablet 08/05/20 Unknown Rx Docusate Sodium [Colace] 100 mg PO BID PRN 5 Days #10 04/26/22 Unknown Rx capsule NS oxyCODONE /ACETAMINOPHEN [Percocet 1 tab PO Q6HR PRN 5 Days #15 04/26/22 Unknown Rx 5/325] tablet NS Allergies Allergy/AdvReac Type Severity Reaction Status Date / Time No Known Allergies Allergy Verified 12/19/21 12:05 ED Review of Systems ROS: Stated complaint: RT SIDE NUMBNESS/SLURRED SPEECH Other details as noted in HPI Comment: All other systems reviewed and negative Musculoskeletal: arthralgia (right shoulder ), myalgia ED Past Medical Hx - Past Medical History Hx Hypertension: Yes Hx Heart Attack/AMI: Yes (2013) Hx Congestive Heart Failure: Yes Hx Diabetes: Yes Hx GERD: Yes Hx Arthritis: Yes Hx Headaches / Migraines: Yes (MIGRAINES) Hx Kidney Stones: Yes Hx Asthma: Yes ( CHILD ONLY) Hx HIV: No Additional medical history: Chronic low back pain. naval hernia, knee Pain,Art hritis - Surgical History Hx Coronary Stent: Yes Hx Pacemaker: Yes Additional Surgical History: Tummy tuck - Social History Smoking Status: Current Every Day Smoker - Medications Home Medications: Home Medications Medication Instructions Recorded Confirmed Last Taken Type Metoprolol [Lopressor TAB] 50 mg PO QDAY #30 tablet 06/15/14 12/20/19 06/16/17 11:32 Rx Aspirin [Adult Low Dose Aspirin EC] 81 mg PO QDAY 01/27/17 12/20/19 06/11/17 History AtorvaSTATin [Lipitor] 20 mg PO QHS 05/12/17 12/20/19 06/14/17 History Clopidogrel [Plavix] 75 mg PO QDAY 05/12/17 12/20/19 06/11/17 History Valsartan/Hydrochlorothiazide 1 each PO DAILY 05/12/17 12/20/19 06/14/17 History [Valsartan-Hctz 160-25 mg Tab] metFORMIN [Glucophage] 500 mg PO QDAY 05/12/17 12/20/19 06/14/17 History Pantoprazole [Protonix] 40 mg PO QDAY 06/11/17 12/20/19 06/14/17 History Topiramate [Topamax TAB] 50 mg PO BID 06/11/17 12/20/19 06/11/17 History traMADoL [Ultram] 50 mg PO Q4HR PRN 06/11/17 12/20/19 06/15/17 History tiZANidine [Zanaflex 4mg TAB] 4 mg PO TID 12/20/19 12/20/19 Unknown History Erythromycin [Erythromycin Ophth 1 strip OS QID 10 Days #1 tube 08/05/20 Unknown Rx Oint] Ibuprofen [Motrin 600 MG tab] 600 mg PO Q8H PRN #30 tablet 08/05/20 Unknown Rx Docusate Sodium [Colace] 100 mg PO BID PRN 5 Days #10 04/26/22 Unknown Rx capsule NS oxyCODONE /ACETAMINOPHEN [Percocet 1 tab PO Q6HR PRN 5 Days #15 04/26/22 Unknown Rx 5/325] tablet NS ED Physical Exam - General Limitations: No Limitations General appearance: alert, in no apparent distress - Head Head exam: Present: atraumatic, normal inspection - Eye Eye exam: Present: normal appearance Pupils: Present: normal accommodation - ENT ENT exam: Present: normal exam, normal orophraynx, mucous membranes moist - Neck Neck exam: Present: normal inspection, full ROM. Absent: tenderness - Respiratory Respiratory exam: Present: normal lung sounds bilaterally. Absent: respiratory distress, accessory muscle use - Cardiovascular Cardiovascular Exam: Present: regular rate, normal rhythm, normal heart sounds - GI/Abdominal GI/Abdominal exam: Present: soft, normal bowel sounds. Absent: distended, tenderness - Extremities Exam Extremities exam: Present: tenderness (to the anterior right shoulder with limited anterior rotation ) - Back Exam Back exam: Present: normal inspection. Absent: tenderness - Neurological Exam Neurological exam: Present: alert, oriented X3 - Psychiatric Psychiatric exam: Present: normal affect, normal mood - Skin Skin exam: Present: warm, normal color ED Course Vital Signs 04/25/22 04/26/22 17:16 00:59 Temperature 98.9 F Pulse Rate 100 H 86 Respiratory 18 16 Rate Blood Pressure 157/90 Blood Pressure 131/78 [Right] O2 Sat by Pulse 99 96 Oximetry ED Medical Decision Making - Lab Data Result diagrams: 04/25/22 17:21 04/25/22 17:21 - Radiology Data FINDINGS: Increased subacromial joint space demonstrated. No acute fracture. No dislocati on. Chest wall unremarkable. Right lung clear. IMPRESSION: 1. Increased subacromial joint space nonspecific finding could reflect evidence of joint effusion. No acute osseous findings. - Medical Decision Making here with right shoulder pain with limited in rotation-- with h/o rotator cuff injury to the left this is likely same on the right -- will go ahead and add xray right shoulder to the order to rule out any occult fx or dislocation-- Pt labs reviewed to be wnl --with no sign of infection or electrolytes abnormality-- Given torador IM x 1-- Critical care attestation.: If time is entered above; I have spent that time in minutes in the direct care of this critically ill patient, excluding procedure time. ED Disposition Clinical Impression: Right anterior shoulder pain Disposition: HOME / SELF CARE / HOMELESS Is pt being admited?: No Does the pt Need Aspirin: No Condition: Stable Instructions: Shoulder Pain, [id number], How to Use Cold Therapy, [id number] Additional Instructions: Follow the printed instruction as described Take your pain medicine as prescribed to continue to help your symptoms Call and schedule follow-up with your primary doctor in the next 3 to 5 days for progress Please do not hesitate to call or return to emergency room if your symptoms worsen Prescriptions: Docusate Sodium [Colace] 100 mg PO BID PRN 5 Days #10 capsule NS PRN Reason: Constipation oxyCODONE /ACETAMINOPHEN [Percocet 5/325] 1 tab PO Q6HR PRN 5 Days #15 tablet NS PRN Reason: Pain Referrals: LUIS FERNANDO SAEZ MD [Staff Physician] - 3-5 Days Time of Disposition: 03:50
[2022-04-26] MEDS ORDERED: KETOROLAC 60 MG/2 ML INJ IM ONE (01:01)
[2022-04-26 01:03] LABS: Calcium Oxalate Crystals,Urine 3+; Mucus,Urine 1+ /HPF
--- NOTE | 2022-04-26 01:21 | XRay Report ---
RIGHT SHOULDER 3 VIEW(S) INDICATION / CLINICAL INFORMATION: right shoulder pain unable to move overhead. COMPARISON: None available. FINDINGS: Increased subacromial joint space demonstrated. No acute fracture. No dislocation. Chest wall unremar kable. Right lung clear. IMPRESSION: 1. Increased subacromial joint space nonspecific finding could reflect evidence of joint effusion. No acute osseous findings. Signer Name: Fady Garza II, MD Signed: 04/26/2022 1:17 AM Workstation Name: [id number]
[2022-04-26 01:42] LABS: Bilirubin,Urine Negative (Negative); Blood,Urine 1+ (Negative); Color,Urine Yellow (Yellow); Urobilinogen,Urine < 2.0 mg/dL (<2.0)
[2022-04-26 03:24] VITALS: BP 157/90
--- NOTE | 2022-04-26 11:18 | Electrocardiograph Report ---
[facility] Test Date: 2022-04-25 Test Time: 17:30:25 Pat Name: DEEP TRAN Department: Room: Gender: F Dental Insurance Coordinator: MURRAY : 1960 Requested By: NGHIA JAMESON Order Number: [id number] Reading MD: Rehan Ochoa Measurements Intervals [place] Rate: 100 P: 21 [place]: 156 QRS: -21 QRSD: 103 T: 88 QT: 389 QTc: 501 Interpretive Statements Sinus tachycardia Probable left atrial enlargement Low voltage, precordial leads Prolonged QT interval No previous ECG available for comparison Electronically Signed On 04-26-2022 11:17:47 EDT by Rehan Ochoa
== END 2022-04-26 04:03 | disposition home or self-care (01) ==
LOC: ED 17:08
DX: M25.511 Pain in right shoulder (principal); I11.0 Hypertensive heart disease with heart failure; I50.9 Heart failure, unspecified; I21.9 Acute myocardial infarction, unspecified; E11.9 Type 2 diabetes mellitus without complications; K21.9 Gastro-esophageal reflux disease without esophagitis; M19.90 Unspecified osteoarthritis, unspecified site; G43.909 Migraine, unspecified, not intractable, without status migrainosus; N20.0 Calculus of kidney; J45.909 Unspecified asthma, uncomplicated; Z98.890 Other specified postprocedural states; Z79.899 Other long term (current) drug therapy
CPT/HCPCS: 36415; 70450; 73030; 80053; 81001; 84484; 85025; 85610; 85730; 87086; 93005; 96372; 99284; J1885

== ENCOUNTER 2022-06-24 17:57 | Emergency (ER) | payer OTHER | END 2022-06-25 11:37 | disposition left against medical advice (07) | LOC: ED 17:57 | DX: I10 Essential (primary) hypertension (principal); J00 Acute nasopharyngitis [common cold]; Z53.21 Procedure and treatment not carried out due to patient leaving prior to being seen by health care provider ==